=== PATIENT | female | born 1970 ===

== ENCOUNTER 2016-05-07 13:05 | Emergency (ER) | payer MEDICAID ==
[2016-05-07 13:06] VITALS: BMI 29.7
[2016-05-07 13:20] VITALS: BP 126/78; PULSE 80; RESP 16; TEMP 99; O2SAT 100
--- NOTE | 2016-05-07 13:49 | ED PDOC ---
HPI: Female Pain Time Seen by Provider: 05/07/16 13:38 Chief Complaint (Nursing): Female Genitourinary Chief Complaint (Provider): Dysuria History Per: Patient History/Exam Limitations: no limitations Onset/Duration Of Symptoms: Days (x2) Current Symptoms Are (Timing): Still Present Severity: Mild Quality Of Discomfort: Burning Additional Complaint(s): Patient is a 45 year old female presenting to the ED complaining of dysuria x2 days. Dysuria is associated with frequency. Patient is concerned with possible or STD status post unprotected sex in February 2016. Patient has irregular menstrual cycles. Last menstrual period was 02/22/2016. Of note: Patient reports she had a bartholin abscess that she pressed on and now reports mild irritation to the area. PMD: Yovani Garrison Past Medical History Reviewed: Historical Data, Nursing Documentation, Vital Signs Vital Signs: Last Vital Signs Temp 99.0 F 05/07/16 13:15 Pulse 80 05/07/16 13:15 Resp 16 05/07/16 13:15 BP 126/78 05/07/16 13:15 Pulse Ox 100 05/07/16 13:15 - Medical History PMH: Anxiety, Asthma (moderate persistent), Back Problems, Bronchitis, Crohn's Disease, Fractures, Migraine, Pulmonary Embolism, Chronic Pain (Herniated disks and pinched nerves ) Denies: Diabetes, Hepatitis, HIV, HTN, Chronic Kidney Disease, Seizures, Sexually Transmitted Disease Comment Only: COPD (asthma, bronchitis) - Surgical History Surgical History: Cholecystectomy, (1x) - Family History Family History: States: No Known Family Hx - Home Medications Home Medications: Ambulatory Orders Medication Instructions Recorded SUMAtriptan [Imitrex Tab] 25 mg PO DAILY PRN 06/24/14 clonazePAM [Klonopin] 1 mg PO QID 03/30/15 Carisoprodol [Soma] 350 mg PO QID 10/21/15 Dicyclomine [Bentyl] 10 mg PO TID 10/21/15 SulfaSALAzine [Azulfidine] 500 mg PO QID 10/21/15 Pantoprazole [Protonix EC Tab] 40 mg PO DAILY #0 ect 11/01/15 Gabapentin [Neurontin] 100 mg PO TID 11/27/15 HYDROmorphone [Dilaudid] 2 mg PO BID PRN 11/27/15 Albuterol HFA [Ventolin HFA 90 2 puff IH Q6H PRN 12/19/15 mcg/actuation (8 g)] Albuterol/Ipratropium [Duoneb 3 3 ml INH Q6H PRN 12/19/15 mg/0.5 mg (3 ml) UD] Apixaban [Eliquis] 5 mg PO Q12H 12/19/15 Montelukast [Singulair] 10 mg PO HS 12/19/15 Nabumetone [Relafen] 750 mg PO BID 12/19/15 Zolpidem [Ambien] 10 mg PO HS PRN 12/19/15 oxyCODONE [oxyCODONE Immediate 30 mg PO QID 12/19/15 Release Tab] Ciprofloxacin [Cipro] 500 mg PO BID #10 tab 05/07/16 Lidocaine 2% Viscous 0.5 ml TOP Q8H PRN #10 ml 05/07/16 Phenazopyridine HCl [Pyridium] 100 mg PO BID #10 tablet 05/07/16 - Allergies Allergies/Adverse Reactions: Allergies Allergy/AdvReac Type Severity Reaction Status Date / Time amoxicillin Allergy RASH Verified 05/07/16 13:15 amoxicillin trihydrate Allergy RASH Verified 05/07/16 13:15 [From Augmentin] potassium clavulanate Allergy RASH Verified 05/07/16 13:15 [From Augmentin] Review of Systems ROS Statement: Except As Marked, All Systems Reviewed And Found Negative Cardiovascular: Negative for: Chest Pain Genitourinary Female: Positive for: Dysuria, Frequency Physical Exam - Reviewed Nursing Documentation Reviewed: Yes Vital Signs Reviewed: Yes - Physical Exam Appears: Positive for: Well, Non-toxic, No Acute Distress Head Exam: Positive for: ATRAUMATIC, NORMAL INSPECTION, NORMOCEPHALIC Skin: Positive for: Normal Color, Warm, DRY Eye Exam: Positive for: Normal appearance, EOMI, PERRL Neck: Positive for: Normal, Painless ROM Cardiovascular/Chest: Positive for: Regular Rate, Rhythm. Negative for: Gallop , Murmur Respiratory: Positive for: Normal Breath Sounds. Negative for: Accessory Muscle Use, Rhonchi, Respiratory Distress Gastrointestinal/Abdominal: Positive for: Normal Exam, Bowel Sounds, Soft. Negative for: Tenderness Extremity: Positive for: Normal ROM Neurologic/Psych: Positive for: Alert, Oriented - ECG O2 Sat by Pulse Oximetry: 100 (RA) Pulse Ox Interpretation: Normal Medical Decision Making Medical Decision Making: Time: 13:40 Impression: 45 y/o female with dysuria and frequency Plan: UPreg UDip Urine culture and urine gc/chlamydia Pt states she will f/u with her [employer] TECHNICIAN for further testing. Scribe Attestation: Documented by Juan Alberto Gilman acting as a scribe for SURJIT Lees. Provider Attestation: All medical record entries made by the Scribe were at my direction and personally dictated by me. I have reviewed the chart and agree that the record accurately reflects my personal performance of the history, physical exam, medical decision making, and the department course for this patient. I have also personally directed, reviewed, and agree with the discharge instructions and disposition. Disposition - Clinical Impression Clinical Impression: Urinary tract infection - Patient ED Disposition Is Patient to be Admitted: No Counseled Patient/Family Regarding: Diagnosis, Need For Followup, Rx Given - Disposition Referrals: [facility]Outside] [facility] [Outside] Disposition: Routine/Home Disposition Time: 14:12 Condition: STABLE Prescriptions: Ciprofloxacin [Cipro] 500 mg PO BID #10 tab Lidocaine 2% Viscous 0.5 ml TOP Q8H PRN #10 ml PRN Reason: Pain, Severe (8-10) Phenazopyridine HCl [Pyridium] 100 mg PO BID #10 tablet Instructions: Urinary Tract Infection in Women (ED)
== END 2016-05-07 15:09 | disposition home or self-care (01) ==
LOC: H.ER 13:05
DX: N39.0 Urinary tract infection, site not specified (principal); Z79.01 Long term (current) use of anticoagulants; Z86.711 Personal history of pulmonary embolism

== ENCOUNTER 2016-06-20 08:35 | Emergency (ER) | payer MEDICAID ==
[2016-06-20 08:37] VITALS: BMI 29.9
[2016-06-20 08:38] VITALS: BP 125/73; PULSE 104; RESP 18; TEMP 98.1; O2SAT 99
--- NOTE | 2016-06-20 09:00 | ED PDOC ---
HPI: Trauma/Fall - HPI Time Seen by Provider: 06/20/16 08:46 Chief Complaint (Nursing): Trauma Chief Complaint (Provider): headache History Per: Patient History/Exam Limitations: no limitations Onset/Duration Of Symptoms: Days (x 1) Injury Occurred (Timing): Days Ago: (yesterday) Location Of Injury: Left: Head Additional Complaint(s): Barbara Dickerson is a 45 year old female, with an extensive previous medical history including anxiety, migraine, back pain and asthma, who presents to the ED with complaints of a headache associated with dizziness secondary to sustaining a fall yesterday. Patient reports slipping and injuring the left side of her head but denies any loss of consciousness, neck pain,back pain, nausea or vomiting. Patient reports to medicating with Aleve to no relief. PMD: none provided Past Medical History Reviewed: Historical Data, Nursing Documentation, Vital Signs Vital Signs: Last Vital Signs Temp 98.1 F 06/20/16 08:38 Pulse 104 H 06/20/16 08:38 Resp 18 06/20/16 08:38 BP 125/73 06/20/16 08:38 Pulse Ox 99 06/20/16 09:08 - Medical History PMH: Anxiety, Asthma, Back Problems, Bronchitis, Crohn's Disease, Fractures, Migraine, Pulmonary Embolism, Chronic Pain (Herniated disks and pinched nerves ) Denies: Diabetes, Hepatitis, HIV, HTN, Chronic Kidney Disease, Seizures, Sexually Transmitted Disease Comment Only: COPD (asthma, bronchitis) - Surgical History Surgical History: Cholecystectomy, (1x) - Family History Family History: States: Unknown Family Hx - Home Medications Home Medications: Ambulatory Orders Medication Instructions Recorded SUMAtriptan [Imitrex Tab] 25 mg PO DAILY PRN 06/24/14 clonazePAM [Klonopin] 1 mg PO QID 03/30/15 Carisoprodol [Soma] 350 mg PO QID 10/21/15 Dicyclomine [Bentyl] 10 mg PO TID 10/21/15 SulfaSALAzine [Azulfidine] 500 mg PO QID 10/21/15 Pantoprazole [Protonix EC Tab] 40 mg PO DAILY #0 ect 11/01/15 Gabapentin [Neurontin] 100 mg PO TID 11/27/15 HYDROmorphone [Dilaudid] 2 mg PO BID PRN 11/27/15 Albuterol HFA [Ventolin HFA 90 2 puff IH Q6H PRN 12/19/15 mcg/actuation (8 g)] Albuterol/Ipratropium [Duoneb 3 3 ml INH Q6H PRN 12/19/15 mg/0.5 mg (3 ml) UD] Apixaban [Eliquis] 5 mg PO Q12H 12/19/15 Montelukast [Singulair] 10 mg PO HS 12/19/15 Nabumetone [Relafen] 750 mg PO BID 12/19/15 Zolpidem [Ambien] 10 mg PO HS PRN 12/19/15 oxyCODONE [oxyCODONE Immediate 30 mg PO QID 12/19/15 Release Tab] Ciprofloxacin [Cipro] 500 mg PO BID #10 tab 05/07/16 Lidocaine 2% Viscous 0.5 ml TOP Q8H PRN #10 ml 05/07/16 Phenazopyridine HCl [Pyridium] 100 mg PO BID #10 tablet 05/07/16 traMADol [Ultram] 50 mg PO Q8 #10 tab 06/20/16 - Allergies Allergies/Adverse Reactions: Allergies Allergy/AdvReac Type Severity Reaction Status Date / Time amoxicillin Allergy RASH Verified 05/07/16 13:15 amoxicillin trihydrate Allergy RASH Verified 05/07/16 13:15 [From Augmentin] potassium clavulanate Allergy RASH Verified 05/07/16 13:15 [From Augmentin] Review of Systems ROS Statement: Except As Marked, All Systems Reviewed And Found Negative Gastrointestinal: Negative for: Nausea, Vomiting Musculoskeletal: Negative for: Neck Pain, Back Pain Neurological: Positive for: Headache, Dizziness Physical Exam - Reviewed Nursing Documentation Reviewed: Yes Vital Signs Reviewed: Yes - Physical Exam Appears: Positive for: Well, Non-toxic, No Acute Distress Head Exam: Negative for: NORMAL INSPECTION (small abrasion to the left temporal area. no palpable fracture ) Eye Exam: Positive for: Normal appearance, EOMI, PERRL. Negative for: Nystagmus Neck: Positive for: Normal, Painless ROM, Supple Cardiovascular/Chest: Positive for: Regular Rate, Rhythm Respiratory: Positive for: CNT, Normal Breath Sounds Gastrointestinal/Abdominal: Positive for: Normal Exam, Bowel Sounds, Soft Extremity: Positive for: Normal ROM Neurologic/Psych: Positive for: Alert, Oriented. Negative for: Motor/Sensory Deficits - ECG O2 Sat by Pulse Oximetry: 99 (RA) Pulse Ox Interpretation: Normal Medical Decision Making Medical Decision Making: Initial Impression: headache Initial Plan: * urine * CT head w/o contrast * reevaluation Scribe Attestation: Documented by Christin Lazaro, acting as a scribe for Jaret Ambrocio MD. Provider Scribe Attestation: All medical record entries made by the Scribe were at my direction and personally dictated by me. I have reviewed the chart and agree that the record accurately reflects my personal performance of the history, physical exam, medical decision making, and the department course for this patient. I have also personally directed, reviewed, and agree with the discharge instructions and disposition. Disposition - Clinical Impression Clinical Impression: Head injury - Patient ED Disposition Is Patient to be Admitted: No Counseled Patient/Family Regarding: Studies Performed, Diagnosis, Need For Followup, Rx Given - Disposition Referrals: Dariel Schwab MD [Medical Doctor] - Disposition: Routine/Home Disposition Time: 10:00 Condition: FAIR Prescriptions: traMADol [Ultram] 50 mg PO Q8 #10 tab Instructions: Head Injury (ED), Concussion (ED)
--- NOTE | 2016-06-20 10:01 | CT ---
PROCEDURE: CT HEAD WITHOUT CONTRAST. HISTORY: r/o bleed COMPARISON: None available. TECHNIQUE: Axial computed tomography images were obtained through the head/brain without intravenous contrast. Radiation dose: Total exam DLP = 1862 mGy-cm. This CT exam was performed using one or more of the following dose reduction techniques: Automated exposure control, adjustment of the mA and/or kV according to patient size, and/or use of iterative reconstruction technique. FINDINGS: HEMORRHAGE: No intracranial hemorrhage. BRAIN: No mass effect or edema. No atrophy or chronic microvascular ischemic changes. VENTRICLES: Unremarkable. No hydrocephalus. CALVARIUM: Unremarkable. PARANASAL SINUSES: Unremarkable as visualized. No significant inflammatory changes. MASTOID AIR CELLS: Unremarkable as visualized. No inflammatory changes. OTHER FINDINGS: None. IMPRESSION: Normal CT of the Head.
== END 2016-06-20 10:08 | disposition home or self-care (01) ==
LOC: H.ER 08:35
DX: S09.90XA Unspecified injury of head, initial encounter (principal); W19.XXXA Unspecified fall, initial encounter; Y92.89 Other specified places as the place of occurrence of the external cause; F41.9 Anxiety disorder, unspecified; J44.9 Chronic obstructive pulmonary disease, unspecified; J45.909 Unspecified asthma, uncomplicated; K50.90 Crohn's disease, unspecified, without complications; Z79.01 Long term (current) use of anticoagulants; Z86.711 Personal history of pulmonary embolism; Z88.0 Allergy status to penicillin

== ENCOUNTER 2016-07-07 23:31 | Emergency (ER) | payer MEDICAID ==
[2016-07-07 23:31] VITALS: BMI 29.9
[2016-07-07 23:44] VITALS: PULSE 75; RESP 16
[2016-07-08] MEDS ORDERED: Lidocaine 2% Jelly (Uro-Jet) TOP ONE (00:32)
--- NOTE | 2016-07-08 01:13 | ED PDOC ---
HPI: General Adult Time Seen by Provider: 07/07/16 23:52 Chief Complaint (Nursing): Abdominal Pain Chief Complaint (Provider): left labia pain, lower abd pain History Per: Patient History/Exam Limitations: no limitations Onset/Duration Of Symptoms: Days (3) Have you had recent travel within the past 21 days to any of the following countries: [place], [place], [place] or [place]?: No Current Symptoms Are (Timing): Still Present Additional Complaint(s): 45yo female presents to the ED with c/o left labia pain x 3 days with associated lower abdominal pain. Patient states she has had this kind of infection before and last time was told she had UTI. Patient endorses unprotected sex several months ago. Further reports foul smelling discharge and states infection is exacerbating typical Crohn's pain as well. Past Medical History Reviewed: Historical Data, Nursing Documentation, Vital Signs Vital Signs: Last Vital Signs Temp 98 F 07/07/16 23:41 Pulse 75 07/07/16 23:41 Resp 16 07/07/16 23:41 BP 123/67 07/07/16 23:41 Pulse Ox 98 07/08/16 01:22 - Medical History PMH: Anxiety, Asthma, Back Problems, Bronchitis, Crohn's Disease, Fractures, Migraine, Pulmonary Embolism, Chronic Pain (Herniated disks and pinched nerves ) Denies: Diabetes, Hepatitis, HIV, HTN, Chronic Kidney Disease, Seizures, Sexually Transmitted Disease Comment Only: COPD (asthma, bronchitis) - Surgical History Surgical History: Cholecystectomy, (1x) - Family History Family History: States: No Known Family Hx - Home Medications Home Medications: Ambulatory Orders Medication Instructions Recorded SUMAtriptan [Imitrex Tab] 25 mg PO DAILY PRN 06/24/14 clonazePAM [Klonopin] 1 mg PO QID 03/30/15 Carisoprodol [Soma] 350 mg PO QID 10/21/15 Dicyclomine [Bentyl] 10 mg PO TID 10/21/15 SulfaSALAzine [Azulfidine] 500 mg PO QID 10/21/15 Pantoprazole [Protonix EC Tab] 40 mg PO DAILY #0 ect 11/01/15 Gabapentin [Neurontin] 100 mg PO TID 11/27/15 HYDROmorphone [Dilaudid] 2 mg PO BID PRN 11/27/15 Albuterol HFA [Ventolin HFA 90 2 puff IH Q6H PRN 12/19/15 mcg/actuation (8 g)] Albuterol/Ipratropium [Duoneb 3 3 ml INH Q6H PRN 12/19/15 mg/0.5 mg (3 ml) UD] Apixaban [Eliquis] 5 mg PO Q12H 12/19/15 Montelukast [Singulair] 10 mg PO HS 12/19/15 Nabumetone [Relafen] 750 mg PO BID 12/19/15 Zolpidem [Ambien] 10 mg PO HS PRN 12/19/15 oxyCODONE [oxyCODONE Immediate 30 mg PO QID 12/19/15 Release Tab] Ciprofloxacin [Cipro] 500 mg PO BID #10 tab 05/07/16 Lidocaine 2% Viscous 0.5 ml TOP Q8H PRN #10 ml 05/07/16 Phenazopyridine HCl [Pyridium] 100 mg PO BID #10 tablet 05/07/16 traMADol [Ultram] 50 mg PO Q8 #10 tab 06/20/16 Doxycycline Monohydrate 100 mg PO BID 7 Days 07/08/16 Nitrofurantoin Macrocrystals 100 mg PO BID 5 Days 07/08/16 [Macrobid] - Allergies Allergies/Adverse Reactions: Allergies Allergy/AdvReac Type Severity Reaction Status Date / Time amoxicillin Allergy RASH Verified 05/07/16 13:15 amoxicillin trihydrate Allergy RASH Verified 05/07/16 13:15 [From Augmentin] potassium clavulanate Allergy RASH Verified 05/07/16 13:15 [From Augmentin] Review of Systems ROS Statement: Except As Marked, All Systems Reviewed And Found Negative Gastrointestinal: Positive for: Abdominal Pain (lower abd pain ) Genitourinary Female: Positive for: Vaginal Discharge (foul smelling ), Other ( left labia pain ) Physical Exam - Reviewed Nursing Documentation Reviewed: Yes Vital Signs Reviewed: Yes - Physical Exam Appears: Positive for: Well, No Acute Distress Head Exam: Positive for: ATRAUMATIC, NORMAL INSPECTION, NORMOCEPHALIC Skin: Positive for: Normal Color, Warm, Dry Eye Exam: Positive for: Normal appearance, EOMI, PERRL ENT: Positive for: Normal ENT Inspection Neck: Positive for: Normal, Painless ROM, Supple Cardiovascular/Chest: Positive for: Regular Rate, Rhythm. Negative for: Murmur , Tachycardia Respiratory: Positive for: Normal Breath Sounds. Negative for: Wheezing, Respiratory Distress Gastrointestinal/Abdominal: Positive for: Soft, Tenderness (lower abdominal tenderness ) Pelvic Exam: Positive for: Discharge (white foul smelling discharge ), Tender W/ Cervical Motion, Other ((chaperoned by process control tech Tejal Quiñones) vesicles to left labia majora ) Back: Positive for: Normal Inspection. Negative for: L CVA Tenderness, R CVA Tenderness Extremity: Positive for: Normal ROM. Negative for: Deformity, Swelling Neurologic/Psych: Positive for: Alert, Oriented - ECG O2 Sat by Pulse Oximetry: 98 Pulse Ox Interpretation: Normal (RA) Medical Decision Making Medical Decision Makin: Impression: pelvic inflammatory disease, possible herpes Plan: urine preg/dip, UA chlamydia/GC RNA, TMA; HSV 1/2 AB (IGM), W/RFL (S); rapid HIV; rapid plasma reagin Morphine 4mg IM, Lidocaine 2% Gel 1 ea TOP reassess 2AM: Pt. feeling better, return precautions given, told pt. to f/u w/ Dr. Garrison in 2-3 days for repeat UA. Scribe Attestation: Documented by David Richey acting as a scribe for Mike Lambert MD. Provider Scribe Attestation: All medical record entries made by the Scribe were at my direction and personally dictated by me. I have reviewed the chart and agree that the record accurately reflects my personal performance of the history, physical exam, medical decision making, and the department course for this patient. I have also personally directed, reviewed, and agree with the discharge instructions and disposition. Disposition - Clinical Impression Clinical Impression: PID (acute pelvic inflammatory disease), UTI (urinary tract infection) - Disposition Referrals: Yovani Garrison MD [Primary Care Provider] - Disposition: Routine/Home Disposition Time: 02:30 Condition: STABLE Prescriptions: Doxycycline Monohydrate 100 mg PO BID 7 Days Nitrofurantoin Macrocrystals [Macrobid] 100 mg PO BID 5 Days Instructions: Pelvic Inflammatory Disease (ED), Urinary Tract Infection in Women (ED)
[2016-07-08 01:42] LABS: RBC URINE 151 /hpf (0-3); URINE BACTERIA RARE (<OCC); URINE BILIRUBIN NEGATIVE (NEGATIVE); URINE BLOOD SMALL (NEGATIVE); URINE COLOR YELLOW (YELLOW); URINE GLUCOSE (UA) NEG (Normal); URINE KETONE NEGATIVE (NEGATIVE); URINE LEUKOCYTE ESTERASE LARGE Leu/uL (Negative); URINE PROTEIN 30 mg/dL (NEGATIVE); URINE UROBILINOGEN 0.2-1.0 mg/dL (0.2-1.0); WBC URINE 106 /hpf (0-5)
[2016-07-08] MEDS ORDERED: Lidocaine 2% Jelly (Uro-Jet) ONE (02:13)
[2016-07-08 02:44] VITALS: BP 135/80; TEMP 97.9; O2SAT 100
== END 2016-07-08 02:44 | disposition home or self-care (01) ==
LOC: H.ER 23:31
DX: N39.0 Urinary tract infection, site not specified (principal); N73.9 Female pelvic inflammatory disease, unspecified; F41.9 Anxiety disorder, unspecified; G89.29 Other chronic pain; J44.9 Chronic obstructive pulmonary disease, unspecified; J45.909 Unspecified asthma, uncomplicated; K50.90 Crohn's disease, unspecified, without complications; N73.0 Acute parametritis and pelvic cellulitis; Z79.01 Long term (current) use of anticoagulants; Z86.711 Personal history of pulmonary embolism; Z88.0 Allergy status to penicillin

== ENCOUNTER 2016-08-09 10:39 | Emergency (ER) | payer MEDICAID ==
[2016-08-09 10:41] VITALS: BMI 29.2
--- NOTE | 2016-08-09 11:32 | ED PDOC ---
HPI: Abdomen Time Seen by Provider: 08/09/16 10:48 Chief Complaint (Nursing): Abdominal Pain Chief Complaint (Provider): Abbominal Pain History Per: Patient Additional Complaint(s): 45 yo F w PMHx of Anxiety, Crohn's, herniated disks of lumbar region, and Asthma , presents to ED with complaints of abdominal cramping, nuasea and vomiting x 5 days. pt reports that she has been out of her pain medicated so she is withdrawing. pt in and out of sleep during initial encounter. reports she was only able to take Vicodin cushed in [employer] today, "but that is it, I need something else." Pt has a history of Benzo Overdose, accidental in the past. Past Medical History Reviewed: Nursing Documentation, Vital Signs Vital Signs: Last Vital Signs Temp 98.1 F 08/09/16 13:20 Pulse 72 08/09/16 13:20 Resp 16 08/09/16 13:20 BP 108/71 08/09/16 13:20 Pulse Ox 98 08/09/16 14:26 - Medical History PMH: Anxiety, Asthma, Back Problems, Bronchitis, Crohn's Disease, Fractures, Migraine, Pulmonary Embolism, Chronic Pain (Herniated disks and pinched nerves ) Denies: Diabetes, Hepatitis, HIV, HTN, Chronic Kidney Disease, Seizures, Sexually Transmitted Disease Comment Only: COPD (asthma, bronchitis) - Surgical History Surgical History: Cholecystectomy, (1x) - Family History Family History: States: Unknown Family Hx - Social History Current smoker - smoking cessation education provided: No Alcohol: Social Drugs: Denies - Home Medications Home Medications: Ambulatory Orders Medication Instructions Recorded SUMAtriptan [Imitrex Tab] 25 mg PO DAILY PRN 06/24/14 clonazePAM [Klonopin] 1 mg PO QID 03/30/15 Carisoprodol [Soma] 350 mg PO QID 10/21/15 Dicyclomine [Bentyl] 10 mg PO TID 10/21/15 SulfaSALAzine [Azulfidine] 500 mg PO QID 10/21/15 Pantoprazole [Protonix EC Tab] 40 mg PO DAILY #0 ect 11/01/15 Gabapentin [Neurontin] 100 mg PO TID 11/27/15 HYDROmorphone [Dilaudid] 2 mg PO BID PRN 11/27/15 Albuterol HFA [Ventolin HFA 90 2 puff IH Q6H PRN 12/19/15 mcg/actuation (8 g)] Albuterol/Ipratropium [Duoneb 3 3 ml INH Q6H PRN 12/19/15 mg/0.5 mg (3 ml) UD] Apixaban [Eliquis] 5 mg PO Q12H 12/19/15 Montelukast [Singulair] 10 mg PO HS 12/19/15 Nabumetone [Relafen] 750 mg PO BID 12/19/15 Zolpidem [Ambien] 10 mg PO HS PRN 12/19/15 oxyCODONE [oxyCODONE Immediate 30 mg PO QID 12/19/15 Release Tab] Ciprofloxacin [Cipro] 500 mg PO BID #10 tab 05/07/16 Lidocaine 2% Viscous 0.5 ml TOP Q8H PRN #10 ml 05/07/16 Phenazopyridine HCl [Pyridium] 100 mg PO BID #10 tablet 05/07/16 traMADol [Ultram] 50 mg PO Q8 #10 tab 06/20/16 Doxycycline Monohydrate 100 mg PO BID 7 Days 07/08/16 Nitrofurantoin Macrocrystals 100 mg PO BID 5 Days 07/08/16 [Macrobid] valACYclovir [Valtrex] 1 gm PO BID #20 tab 07/13/16 Ondansetron ODT [Zofran ODT] 4 mg PO Q6 PRN #10 odt 08/09/16 - Allergies Allergies/Adverse Reactions: Allergies Allergy/AdvReac Type Severity Reaction Status Date / Time amoxicillin Allergy RASH Verified 05/07/16 13:15 amoxicillin trihydrate Allergy RASH Verified 05/07/16 13:15 [From Augmentin] potassium clavulanate Allergy RASH Verified 05/07/16 13:15 [From Augmentin] Review of Systems ROS Statement: Except As Marked, All Systems Reviewed And Found Negative Gastrointestinal: Positive for: Nausea, Vomiting, Abdominal Pain Physical Exam - Reviewed Nursing Documentation Reviewed: Yes Vital Signs Reviewed: Yes - Physical Exam Appears: Positive for: Well, Non-toxic, No Acute Distress Head Exam: Positive for: ATRAUMATIC, NORMAL INSPECTION, NORMOCEPHALIC Skin: Positive for: Normal Color, Warm, DRY Eye Exam: Positive for: EOMI, Normal appearance, PERRL ENT: Positive for: Normal ENT Inspection Neck: Positive for: Normal, Painless ROM Cardiovascular/Chest: Positive for: Regular Rate, Rhythm Respiratory: Positive for: CNT, Normal Breath Sounds Gastrointestinal/Abdominal: Positive for: Normal Exam, Bowel Sounds, Soft. Negative for: Tenderness Back: Positive for: Normal Inspection Extremity: Positive for: Normal ROM Neurologic/Psych: Positive for: Alert, Oriented - Laboratory Results Result Diagrams: 08/09/16 11:55 08/09/16 11:55 - ECG O2 Sat by Pulse Oximetry: 98 Medical Decision Making Medical Decision Making: IV access established and treatment initiated with IVF, Ativan and Zofran Pt asking for Morphine and underwriter denied. Pt educated on medication abuse, as well as withdrawal symptoms. Pt's mother at bedside and is also trying to re- enforce Pt weaning from her narcotics. No episodes of vomiting while in ED. labs resulted and reviewed with pt who demonstrated full understanding. UDS (+) Benzos and Opiates Pt asking to go home on re-eval if no narcotics will be provided. Upon discharge, Pt upset and yelling that she did not come to hospital for drug withdrawls. "i have not taken my medication in 5 days, I have vomiting and nausea, not withdrawl." Again, underwriter educated Pt on symptoms of withdrawl. Pt requesting to have dx removed from chart. Pt states she needs to show her job papers she was here and does not want dx listed on her chart. Pt was also concerned about her job being aware of reasons of her visit today. Registered Nurse Hh Case Manager offered work note and educated patient about [place] Laws. Patient states she will not come back again. Pt ambulates out of ED with friend with all belongings , screaming "i was hear for leg pain and they didn't give me anything." Disposition - Clinical Impression Clinical Impression: Vomiting, Symptom of drug withdrawal - Patient ED Disposition Is Patient to be Admitted: No - Disposition Disposition: Routine/Home Disposition Time: 14:30 Condition: STABLE Prescriptions: Ondansetron ODT [Zofran ODT] 4 mg PO Q6 PRN #10 odt PRN Reason: Nausea/Vomiting Instructions: Opioid Withdrawal (ED)
[2016-08-09] MEDS ORDERED: Sodium Chloride 0.9% 1,000 ML IV STA (11:33)
[2016-08-09 11:59] LABS: BASO % 0.3 % (0.0-2.0); EOS % 0.5 % (0.0-4.0); HEMOGLOBIN 12.4 g/dL (12.0-16.0); LYMPH # 2.2 K/uL (1.0-4.3); LYMPH % 29.9 % (20.0-40.0); MEAN CELL VOLUME 90.9 fl (81.0-99.0); MONO # 0.5 K/uL (0.0-0.8); MONO % 6.7 % (0.0-10.0); NEUT # 4.7 K/uL (1.8-7.0); NEUT % 62.6 % (50.0-75.0); NRBC % 0.1 % (0.0-0.0); RBC 4.14 Mil/uL (3.80-5.20); RED CELL DISTRIBUTION WIDTH 15.1 % (11.5-14.5); WHITE BLOOD COUNT 7.5 K/uL (4.8-10.8)
[2016-08-09 12:10] LABS: ACETAMINOPHEN < 10.0 ug/ml (10.0-30.0); SALICYLATE < 1.0 mg/dl
[2016-08-09 12:20] LABS: BARBITURATES, UR NEGATIVE (NEGATIVE); BENZODIAZEPINES, UR POSITIVE (NEGATIVE); OPIATES, UR POSITIVE (NEGATIVE); PHENCYCLIDINE, UR NEGATIVE (NEGATIVE)
[2016-08-09 13:21] VITALS: BP 108/71; PULSE 72; RESP 16; TEMP 98.1
[2016-08-09 13:23] LABS: ALB/GLOB RATIO 1.2 (1.0-2.1); ALBUMIN 3.9 g/dL (3.5-5.0); ALT/SGPT 27 U/L (9-52); AST/SGOT 17 U/L (14-36); BLOOD UREA NITROGEN 9 mg/dl (7-17); CALCIUM 8.8 mg/dL (8.4-10.2); GFR AFRICAN-AMERICAN > 60; GFR NON-AFRICAN AMERICAN > 60; LIPASE 34 U/L (23-300)
--- NOTE | 2016-08-09 14:17 | RAD ---
PROCEDURE: CHEST RADIOGRAPH, 1 VIEW HISTORY: med screening COMPARISON: Comparison chest 12/19/2015 FINDINGS: LUNGS: Clear. PLEURA: No pneumothorax or pleural fluid seen. CARDIOVASCULAR: Normal. OSSEOUS STRUCTURES: No significant abnormalities. VISUALIZED UPPER ABDOMEN: Normal. OTHER FINDINGS: None. IMPRESSION: No active disease.
[2016-08-09 14:24] VITALS: O2SAT 98
[2016-08-09 15:01] LABS: SQUAMOUS EPITHIAL 1 /hpf (0-5); URINE BILIRUBIN NEGATIVE (NEGATIVE); URINE BLOOD NEGATIVE (NEGATIVE); URINE CLARITY CLEAR (Clear); URINE COLOR STRAW (YELLOW); URINE GLUCOSE (UA) NEG (Normal); URINE LEUKOCYTE ESTERASE NEG Leu/uL (Negative); URINE NITRATE NEGATIVE (NEGATIVE); URINE PROTEIN NEGATIVE (NEGATIVE); URINE UROBILINOGEN 0.2-1.0 mg/dL (0.2-1.0)
--- NOTE | 2016-08-10 06:47 | CARD ---
APPROVED REPORT EKG Measurement Heart [id number] <Conclusion> Normal sinus rhythm Normal ECG
== END 2016-08-09 13:41 | disposition home or self-care (01) ==
LOC: H.ER 10:39
DX: F11.10 Opioid abuse, uncomplicated (principal); K50.90 Crohn's disease, unspecified, without complications; Z79.01 Long term (current) use of anticoagulants; Z86.711 Personal history of pulmonary embolism; Z88.0 Allergy status to penicillin

== ENCOUNTER 2016-09-08 13:14 | Day surgery (SDC) | payer MEDICAID ==
[2016-09-08 13:50] VITALS: O2SAT 98
[2016-09-08 14:05] VITALS: BMI 30.4
--- NOTE | 2016-09-08 14:06 | CP.SDSHP ---
Same Day Surgery H & P - History Proposed Procedure: left foot removal of hardware Pre-Op Diagnosis: painful hardware 5th metatarsal - Previous Medical/Surgical History Pain: 9. - Allergies Allergies: Allergies amoxicillin Allergy (Verified 05/07/16 13:15) RASH amoxicillin trihydrate [From Augmentin] Allergy (Verified 05/07/16 13:15) RASH potassium clavulanate [From Augmentin] Allergy (Verified 05/07/16 13:15) RASH - Physical Exam Vital Signs: Vital Signs 09/08/16 09/08/16 13:49 13:53 Temperature 98.5 F Pulse Rate 80 80 Respiratory 20 Rate Blood Pressure 104/66 O2 Sat by Pulse 98 Oximetry Mental Status: Alert & Oriented x3 - {Optional Preform as Required} Integument: WNL - Impression Impression: Pt was seen and examined in SDS. Pt NPO status was confirmed. All Pre-op testing and clearance was in the chart. Pt has exhausted all conservative treatment at this time and is opting for surgical intervention. Pt was explained procedure and post-operative course. All pt's questions were answered to satisfaction. No guarantees were made. Pt understands all risks, benefits and complications of procedure. Pt will follow-up with - Date & Time Date: 09/08/16 Time: 14:07 Short Stay Discharge - Short Stay Discharge Admitting Diagnosis/Reason for Visit: T84.498D Referrals: Yovani Garrison MD [Primary Care Provider] - Follow-up: Followup in clinic with Dr. Mcclain in 1 week Additional Instructions (Diet, Activity): Patient is to keep dressing clean, dry, and intact. Patient may weight bear as tolerated in surgical shoe. Progress Note/Discharge Note with Instructions: - Patient evaluated bedside in recovery s/p surgical procedure. - After surgical procedure patient in NAD - (+) Void, (+) Appetite - Capillary refill time <3s and NVSI intact. - Patient denies complaints at this time - Post operative instructions and plan of care explained to patient at length. - Pt. acknowledges understanding. - Patient stable for DC per podiatric surgery
[2016-09-08] MEDS ORDERED: Bupivacaine 0.5% 50 ML IJ ONE ×4 (14:12→16:33)
[2016-09-08] MEDS ORDERED: Clindamycin 600 MG in Sodium Chloride 0.9% 100 ML IVPB ONE (14:12)
[2016-09-08] MEDS ORDERED: Lidocaine 1% Inj (20ml) IJ ONE ×4 (14:12→16:33)
--- NOTE | 2016-09-08 14:20 | CP.PCM.PN ---
Subjective - Date & Time of Evaluation Date of Evaluation: 09/08/16 Time of Evaluation: 13:45 - Subjective Subjective: 46 year old female with PMH of asthma, hyperlipid, IBD, Chrohns, anxiety, and 4 PEs left lung was seen in DSD for per-operative evaluation for left foot removal of hardware by Dr. Mcclain today. Patient has been having a lot of pain to the lateral aspect of 5th metatarsal where hardware is located. Patient states the pain is constant, rating the pain 9/10. Worse with walking. Patient has exhausted all conservative treatment and now opts for surgical intervention. NPO status confirmed. Patient is NAD and AAOx3, denies n/v/f/c/sob /cp. PSH: gallbladder removal, C section, 12 back cysts removed, fracture of L foot 5th digit in 2016 Allergies: augmentin (rash and nausea) SH: denies smoking, drinking or ellicited drug use Objective - Vital Signs/Intake and Output Vital Signs (last 24 hours): Temp Pulse Resp BP Pulse Ox 98.5 F 80 20 104/66 98 09/08/16 13:49 09/08/16 13:53 09/08/16 13:49 09/08/16 13:49 09/08/16 13:49 - Medications Medications: Current Medications Bupivacaine HCl (Marcaine 0.5% 50 Ml) 50 ml IJ ONCE ONE Stop: 09/08/16 14:13 Clindamycin Phosphate 600 mg/ (Sodium Chloride) 54 mls @ 54 mls/hr IVPB ONCE ONE Stop: 09/08/16 15:11 Lidocaine HCl (Lidocaine 1% (20ml)) 20 ml IJ ONCE ONE Stop: 09/08/16 14:13 - Constitutional Appears: Well, Non-toxic, No Acute Distress - Extremities Exam Additional comments: Vasc: DP and PT 2/4 bilaterally, TAXATION AGENT < 3 seconds, temperature gradient WNL, no edema noted, digital hair presents bilaterally Ortho: MM is 4/5 in all four compartments bilaterally, severe pain upon palpation of the lateral aspect of 5th metatarsal when hardware is located Neuro: gross sensation intact bilaterally Derm:completely healed hypertropic scar noted along the dorsum of 5th metatarsal secondary to previous surgery. Skin is well hydrated - Neurological Exam Neurological Exam: Alert, Awake, Oriented x3 - Psychiatric Exam Psychiatric exam: Normal Affect, Normal Mood Assessment and Plan - Assessment and Plan (Free Text) Assessment: 46 year old female presents to [facility] for left hard removal of foot due to painful hardware Plan: Pt was seen and examined in [facility] Pt NPO status was confirmed All Pre-op testing and clearance was in the chart Pt has exhausted all conservative treatment at this time and is opting for surgical intervention Pt was explained procedure and post-operative course All pt's questions were answered to satisfaction No guarantees were made Pt understands all risks, benefits and complications of procedure Pt will follow-up with Dr. Mcclain
[2016-09-08] MEDS ORDERED: Succinylcholine 200 mg/10 ml Inj IV ONE (14:51)
[2016-09-08] MEDS ORDERED: Propofol 10 mg/ml Inj (20 ML) ONE (14:51)
[2016-09-08] MEDS ORDERED: Lidocaine 1% Inj (20ml) ONE (14:58)
[2016-09-08] MEDS ORDERED: Bupivacaine 0.5% Inj(30mL) ONE (14:58)
[2016-09-08] MEDS ORDERED: Lactated Ringer's 1,000 ML IV ONE (15:50)
[2016-09-08] MEDS ORDERED: Dexamethasone 4 mg/1 ml ONE ×2 (16:12→16:14)
[2016-09-08] MEDS ORDERED: Naloxone 0.4 mg/ml Inj (Adult) ONE (16:23)
[2016-09-08] MEDS ORDERED: HYDROmorphone 0.5 mg/0.5 ml ISec ONE (16:53)
--- NOTE | 2016-09-08 16:54 | PCM.SURG1 ---
Surgeon's Initial Post Op Note - Surgeon's Notes Surgeon: Dr. Riley Mcclain, DPM Sock Liner: Dr. Kaden Lang DPM, PGY1, Dr. Kenia Wang DPM, PGY-1 Type of Anesthesia: General Endo, Local Anesthesia Administered By: Dr. Alexandre Pre-Operative Diagnosis: Left 5th metatarsal painful hardware Operative Findings: see dictations. materials: 3-0 vicryl, 4-0 vicyrl, 4-0 prolene. 4.5 cc of 1:1 0.5% marcaine plain and 1% lidocaine plain Post-Operative Diagnosis: same Operation Performed: hardware removal of left 5th metatarsal Specimen/Specimens Removed: none Estimated Blood Loss: EBL {In ML}: 0 Blood Products Given: N/A Drains Used: No Drains Post-Op Condition: Good Date of Surgery/Procedure: 09/08/16 Time of Surgery/Procedure: 03:00
[2016-09-08] MEDS: HYDROmorphone 0.5 mg/0.5 ml ISec IVP PRN ×6 (16:55→17:40)
[2016-09-08] MEDS ORDERED: Oxycodone/Acetaminophen 5/325 mg Tab PO PRN ×2 (16:58)
[2016-09-08 18:33] VITALS: RESP 18
[2016-09-08 19:15] VITALS: BP 114/58; PULSE 63; TEMP 98
[2016-09-08] MEDS ORDERED: Albuterol-Ipratrop 3 mg / 0.5 (3 ml) UD INH PRN (19:17)
[2016-09-08] MEDS ORDERED: Albuterol HFA 90 mcg/actuation (8 g) IH PRN (19:17)
[2016-09-08] MEDS ORDERED: Morphine 30 mg SR Tab PO PRN (19:17)
[2016-09-08] MEDS ORDERED: Oxycodone/Acetaminophen 5/325 mg Tab PO ONE (19:20)
[2016-09-08] MEDS ORDERED: oxyCODONE 10 mg Immediate Release Tab PO SCH (22:00)
--- NOTE | 2016-09-09 01:51 | OP ---
PROCEDURE DATE: 09/08/2016 Dictating for Riley Sutton DPM. PREOPERATIVE DIAGNOSIS: Painful hardware and left foot fifth metatarsal. POSTOPERATIVE DIAGNOSIS: Painful hardware of left foot fifth metatarsal. PROCEDURE: Left foot removal of painful hardware. SURGEON: Riley Sutton DPM POCKET STITCHER: Kaden Lang, PGY-1 TYPE OF ANESTHESIA: IV sedation and 4.5 cc of a 1:1 mixture of 1% lidocaine plain and 0.5% Marcaine plain. ANESTHESIA ADMINISTERED BY: Dr. Alexandre. INDICATIONS: The patient is a 46-year-old female with the above diagnosis. The patient has exhausted all conservative treatment at this time and now requests surgical intervention. The patient signed the consent after careful explanation of risks, benefits, complications, and alternatives for surgical procedure. No guarantees were given nor implied. NPO status was confirmed prior to taking the patient into the OR. PREPARATION: The patient was brought into the operating room and placed on the operating room table in a supine position. Time out was performed for identification of the correct patient and procedure. After induction of IV sedation, a local block was performed consisting of 4.5 mL of 1:1 mixture of 1% lidocaine plain and 0.5% Marcaine plain. The left foot was then prepped and draped in normal sterile manner. Attention was then directed to the left fifth metatarsal where two painful Synthes 2.0 screws were present. An approximately 4.0 cm elliptical incision was made with a #15 blade. The incision was deepened to the subcutaneous tissues using sharp and blunt dissection all the way down to bone. Care was taken to identify and retract all vital neurovascular structures. The two Synthes 2.0 screws were then visualized through the incision using a Faywood elevator and gauge. The soft tissue was dissected from the hardware and the screws were removed from the fifth metatarsal using a Synthes screwdriver. The wound was then flushed with copious amounts of sterile normal saline solution. The deep fascia was then reapproximated and coapted utilizing #3-0 Vicryl with simple sutures followed by reapproximation and coaptation of the subcutaneous tissue layer utilizing #3-0 Vicryl in a running fashion. The skin overlying the surgical incision site was then reapproximated and coapted utilizing #4-0 nylon with simple sutures. The incision sites were then dressed with Xeroform, DSD, and an Jerod bandage. The attending was present for the entirety of the case. POSTOPERATIVE CONDITION: The patient tolerated the anesthesia and procedure well and was escorted to the recovery room with vital signs stable and neurovascular status intact in the left foot. The patient will be full weightbearing in a surgical shoe and follow up with Dr. Sutton. Kaden Lang DPM SEFERINO
[2016-09-09] MEDS ORDERED: Pantoprazole 40 mg EC Tab PO SCH (09:00)
--- NOTE | 2016-09-09 12:12 | RAD ---
PROCEDURE: Left Foot Radiographs. HISTORY: s/p left foot surgery COMPARISON: None available. FINDINGS: Images are obtained through a bandage which limits visibility of osseous detail. BONES: No acute displaced fracture. Small calcaneal enthesophyte. Mild irregularity about the distal 5th metatarsal and adjacent approximately 2 mm calcification/ossification. Correlate with surgical history. JOINTS: No dislocation. SOFT TISSUES: Mild soft tissue swelling. No evidence of radiopaque foreign body. OTHER FINDINGS: None. IMPRESSION: Mild soft tissue swelling. Small calcaneal enthesophyte. Mild irregularity about the distal 5th metatarsal and adjacent approximately 2 mm calcification/ossification. Correlate with surgical history.
== END 2016-09-08 19:47 | disposition home or self-care (01) ==
LOC: H.OPSURG 13:14
PROVIDERS: ATTEND Podiatrist Foot & Ankle Surgery
DX: T84.84XA Pain due to internal orthopedic prosthetic devices, implants and grafts, initial encounter (principal); Y83.1 Surgical operation with implant of artificial internal device as the cause of abnormal reaction of the patient, or of later complication, without mention of misadventure at the time of the procedure; J45.909 Unspecified asthma, uncomplicated; E78.5 Hyperlipidemia, unspecified; K58.9 Irritable bowel syndrome, unspecified; K50.90 Crohn's disease, unspecified, without complications; F41.9 Anxiety disorder, unspecified; Z90.49 Acquired absence of other specified parts of digestive tract; Z87.81 Personal history of (healed) traumatic fracture; Z88.0 Allergy status to penicillin; Z88.8 Allergy status to other drugs, medicaments and biological substances

== ENCOUNTER 2017-02-08 18:31 | Inpatient (IN) | payer MEDICAID ==
[2017-02-08 18:32] VITALS: BMI 30.4
[2017-02-08] MEDS ORDERED: Albuterol-Ipratrop 3 mg / 0.5 (3 ml) UD INH STA (18:53)
[2017-02-08] MEDS ORDERED: Albuterol-Ipratrop 3 mg / 0.5 (3 ml) UD ONE (18:53)
[2017-02-08 19:41] LABS: BASO % 0.4 % (0.0-2.0); EOS # 0.1 K/uL (0.0-0.7); HEMOGLOBIN 8.7 g/dL (12.0-16.0); LYMPH # 2.1 K/uL (1.0-4.3); LYMPH % 32.3 % (20.0-40.0); MEAN CELL VOLUME 83.6 fl (81.0-99.0); MEAN CORPUSCULAR HEMOGLOBIN 26.1 pg (27.0-31.0); MEAN CORPUSCULAR HGB CONC 31.2 g/dL (33.0-37.0); MEAN PLATELET VOLUME 9.7 fl (7.2-11.7); MONO # 0.6 K/uL (0.0-0.8); MONO % 9.3 % (0.0-10.0); NEUT # 3.6 K/uL (1.8-7.0); NRBC % 0.1 % (0.0-0.0); RBC 3.32 Mil/uL (3.80-5.20); RED CELL DISTRIBUTION WIDTH 18.3 % (11.5-14.5); WHITE BLOOD COUNT 6.4 K/uL (4.8-10.8)
[2017-02-08 19:52] LABS: ALB/GLOB RATIO 1.1 (1.0-2.1); ALBUMIN 3.8 g/dL (3.5-5.0); ALT/SGPT 34 U/L (9-52); AST/SGOT 21 U/L (14-36); BLOOD UREA NITROGEN 16 mg/dl (7-17); CALCIUM 8.9 mg/dL (8.4-10.2); GFR AFRICAN-AMERICAN > 60; GFR NON-AFRICAN AMERICAN > 60
[2017-02-08 20:01] LABS: B-TYPE NATRIURETIC PEPTIDE 747 pg/ml (0-450)
--- NOTE | 2017-02-08 20:08 | ED PDOC ---
HPI: SOB/CHF/COPD Time Seen by Provider: 02/08/17 18:46 Chief Complaint (Nursing): Shortness Of Breath Chief Complaint (Provider): Shortness Of Breath History Per: Patient History/Exam Limitations: no limitations Onset/Duration Of Symptoms: Days (x 3) Current Symptoms Are (Timing): Still Present Additional Complaint(s): 46 y/o female with a past medical history of asthma presents to the ER complaining of chest tightness and shortness of breath over the past 3 days, which is acutely worsened today. Also reports having a nonproductive cough. No rhinorrhea or fever. Patient has been using inhaler and nebulized ipratropium treatments at home with no relief. She has a history of admissions for asthma exacerbation (last 1.5 years ago), but no intubations. PMD: Dr. Yovani Garrison - Risk Factors PE Risk Factors: Pos: Previous PE Past Medical History Reviewed: Historical Data, Nursing Documentation, Vital Signs Vital Signs: Last Vital Signs Temp 98.1 F 02/08/17 23:02 Pulse 109 H 02/08/17 23:02 Resp 17 02/08/17 23:02 BP 122/65 02/08/17 23:02 Pulse Ox 97 02/08/17 23:02 - Medical History PMH: Anxiety, Asthma, Back Problems, Bronchitis, Crohn's Disease, Fractures, Hypercholesterolemia, Migraine, Osteoporosis, Pulmonary Embolism, Chronic Pain ( Herniated disks and pinched nerves ) Denies: Diabetes, Hepatitis, HIV, HTN, Chronic Kidney Disease, Seizures, Sexually Transmitted Disease Comment Only: COPD (asthma, bronchitis) - Surgical History Surgical History: Cholecystectomy (2009), (1x) - Family History Family History: States: Unknown Family Hx - Home Medications Home Medications: Ambulatory Orders Medication Instructions Recorded SUMAtriptan [Imitrex Tab] 25 mg PO DAILY PRN 06/24/14 clonazePAM [Klonopin] 1 mg PO QID 03/30/15 Dicyclomine [Bentyl] 10 mg PO TID 10/21/15 SulfaSALAzine [Azulfidine] 500 mg PO QID 10/21/15 Pantoprazole [Protonix EC Tab] 40 mg PO DAILY #0 ect 11/01/15 Gabapentin [Neurontin] 300 mg PO TID 11/27/15 Albuterol HFA [Ventolin HFA 90 2 puff IH Q6H PRN 12/19/15 mcg/actuation (8 g)] Albuterol/Ipratropium [Duoneb 3 3 ml INH Q6H PRN 12/19/15 mg/0.5 mg (3 ml) UD] Apixaban [Eliquis] 5 mg PO Q12H 12/19/15 Ondansetron ODT [Zofran ODT] 4 mg PO Q6 PRN #10 odt 08/09/16 Atorvastatin [Lipitor] 20 mg PO DAILY 09/08/16 Carisoprodol [Soma] 350 mg PO QID 09/08/16 Cholecalciferol (Vitamin D3) 2,000 units PO DAILY 09/08/16 [Vitamin D3] Cyanocobalamin [Vitamin B12 1000 1,000 mcg IM QWK 09/08/16 mcg/ml Inj] Morphine [MS Contin] 60 mg PO BID PRN 09/08/16 Hydrocodone/Acetaminophen [Bondurant 1 tab PO QID PRN 02/08/17 10-325 Tablet] Oxycodone HCl [Roxicodone] 30 mg PO QID PRN 02/08/17 - Allergies Allergies/Adverse Reactions: Allergies Allergy/AdvReac Type Severity Reaction Status Date / Time amoxicillin Allergy RASH Verified 05/07/16 13:15 amoxicillin trihydrate Allergy RASH Verified 05/07/16 13:15 [From Augmentin] potassium clavulanate Allergy RASH Verified 05/07/16 13:15 [From Augmentin] Review of Systems ROS Statement: Except As Marked, All Systems Reviewed And Found Negative Constitutional: Negative for: Fever ENT: Negative for: Nose Congestion Cardiovascular: Positive for: Chest Pain (tightness) Respiratory: Positive for: Cough, Shortness of Breath. Negative for: Sputum Physical Exam - Reviewed Nursing Documentation Reviewed: Yes Vital Signs Reviewed: Yes - Physical Exam Appears: Positive for: In Acute Distress (respiratory) Head Exam: Positive for: ATRAUMATIC, NORMOCEPHALIC Skin: Positive for: Warm, Dry Eye Exam: Positive for: EOMI, PERRL ENT: Positive for: Pharynx Is (clear with dry mucus membranes) Neck: Positive for: Painless ROM, Supple Cardiovascular/Chest: Positive for: Regular Rate, Rhythm, Chest Non Tender. Negative for: Murmur Respiratory: Positive for: Decreased Breath Sounds (bilateral bases), Accessory Muscle Use, Respiratory Distress (poor air movement) Gastrointestinal/Abdominal: Positive for: Soft. Negative for: Tenderness Back: Positive for: Normal Inspection. Negative for: Decreased ROM Extremity: Positive for: Normal ROM. Negative for: Calf Tenderness, Deformity Lymphatic: Negative for: Adenopathy Neurologic/Psych: Positive for: Alert. Negative for: Motor/Sensory Deficits - Laboratory Results Result Diagrams: 02/08/17 19:27 02/08/17 19:27 - ECG O2 Sat by Pulse Oximetry: 88 (NC) Pulse Ox Interpretation: Abnormal - Radiology X-Ray: Interpreted by [place] X-Ray Interpretation: No Acute Disease - Progress Condition: Unchanged - Critical Care Total Time (In Min): 30 Documented Critical Care: Time excludes all time spent performint seperately billable procedures Medical Decision Making Medical Decision Making: Initial Impression: Asthma exacerbation Differential includes but is not limited to: pneumonia, viral illness, influenza Time: 18:51 Initial Plan: * EKG * Labs * Urine dipstick * Urine * Chest X-Ray * Influenza A B * Blood culture * Duoneb 3ml INH * Solu Medrol 125 mg IVP * Peak Flow pre/post treatment * Pending reevaluation Labs reviewed, flu negative. Pro-BNP elevated. Time: 20:13 Patient having continued chest pain. Ordered CT Angio Chest. Patient given Percocet and Ultram for pain. ____ Patient Name: DIANDRA TRAMMELL (Age): 1970 46 Gender: F Date of Exam: 02/08/2017 Referring Physician: Soledad Guthrie # of Images: [phone] Ordered As: CT ANGIO CHEST PE PROTOCOL Page 1 of 2 EXAM: CT Angiography Chest With Intravenous Contrast CLINICAL HISTORY: 46 years old, female; Pain; Chest pressure; Additional info: Chest pain TECHNIQUE: Axial computed tomographic angiography images of the chest with intravenous contrast using pulmonary embolism protocol. All CT scans at this facility use one or more dose reduction techniques, viz.: automated exposure control; ma/kV adjustment per patient size (including targeted exams where dose is matched to indication; i.e. head); or iterative reconstruction technique. MIP reconstructed images were created and reviewed. Coronal and sagittal reformatted images were created and reviewed. CONTRAST: 99 mL of [id number] administered intravenously. COMPARISON: No relevant prior studies available. FINDINGS: Limitations: Suboptimal timing of bolus. Pulmonary arteries: No definite pulmonary embolism. Aorta: No aneurysm. No dissection. Lungs: Mild underinflation. Mild atelectasis/scarring. No consolidation. Mild mosaic pattern of lung parenchyma, nonspecific but likely air trapping. Pleural space: No significant effusion. No pneumothorax. Heart: Mild cardiomegaly. No significant pericardial effusion. Bones/joints: No acute fracture. Soft tissues: Unremarkable. Lymph nodes: No pathologically enlarged lymph nodes. Gallbladder and bile ducts: Cholecystectomy. IMPRESSION: 1. No definite CT evidence of pulmonary embolism. 2. Incidental/non-acute findings are described above. Thank you for allowing us to participate in the care of your patient. Dictated and Authenticated by: Nicholas Briceno MD 02/08/2017 10:09 PM Eastern Time ([place] & [place]) Time: 22:28 * Morphine 2 mg IV * Albuterol 2.5 mg INH * Peak Flow pre/post treatment * Magnesium sulfate 2 gm in 50ml IVPB * Repeat EKG Time: 22:31 Patient continues to have chest pain despite pain meds, solu-medrol, and nebulizers given. Discussed with ALEX Liriano, patient will be hospitalized for further management. Scribe Attestation: Documented by Miriam Gibbs, acting as a scribe for Soledad Guthrie MD Provider Scribe Attestation: All medical record entries made by the Scribe were at my direction and personally dictated by me. I have reviewed the chart and agree that the record accurately reflects my personal performance of the history, physical exam, medical decision making, and the department course for this patient. I have also personally directed, reviewed, and agree with the discharge instructions and disposition. Disposition - Clinical Impression Clinical Impression: Chest pain, Status asthmaticus - Patient ED Disposition Is Patient to be Admitted: Yes Discussed With : Yovani Garrison Doctor Will See Patient In The: Hospital Counseled Patient/Family Regarding: Studies Performed, Diagnosis - Disposition Disposition: Transfer of Care (admitted) Disposition Time: 22:30 Condition: GUARDED - Pt Status Changed To: Hospital Disposition Of: Observation - POA Present On Arrival: None
[2017-02-08] MEDS ORDERED: Sodium Chloride 0.9% 50 ML IV ONE (20:17)
[2017-02-08] MEDS ORDERED: Iodixanol 320 MG/ML 100 ML BOTTLE IV ONE (20:17)
[2017-02-08] MEDS ORDERED: Oxycodone/Acetaminophen 5/325 mg Tab PO STA (20:21)
[2017-02-08] MEDS ORDERED: Oxycodone/Acetaminophen 5/325 mg Tab ONE (20:23)
--- NOTE | 2017-02-08 22:10 | CT ---
EXAM: CT Angiography Chest With Intravenous Contrast CLINICAL HISTORY: 46 years old, female; Pain; Chest pressure; Additional info: Chest pain TECHNIQUE: Axial computed tomographic angiography images of the chest with intravenous contrast using pulmonary embolism protocol. All CT scans at this facility use one or more dose reduction techniques, viz.: automated exposure control; ma/kV adjustment per patient size (including targeted exams where dose is matched to indication; i.e. head); or iterative reconstruction technique. MIP reconstructed images were created and reviewed. Coronal and sagittal reformatted images were created and reviewed. CONTRAST: 99 mL of [id number] administered intravenously. COMPARISON: No relevant prior studies available. FINDINGS: Limitations: Suboptimal timing of bolus. Pulmonary arteries: No definite pulmonary embolism. Aorta: No aneurysm. No dissection. Lungs: Mild underinflation. Mild atelectasis/scarring. No consolidation. Mild mosaic pattern of lung parenchyma, nonspecific but likely air trapping. Pleural space: No significant effusion. No pneumothorax. Heart: Mild cardiomegaly. No significant pericardial effusion. Bones/joints: No acute fracture. Soft tissues: Unremarkable. Lymph nodes: No pathologically enlarged lymph nodes. Gallbladder and bile ducts: Cholecystectomy. IMPRESSION: 1. No definite CT evidence of pulmonary embolism. 2. Incidental/non-acute findings are described above.
[2017-02-08] MEDS ORDERED: Albuterol 0.083% Inhal Sol (2.5 mg/3 mL) UD IH STA (22:27)
[2017-02-08] MEDS ORDERED: Magnesium Sulfate 2 gm/50 ml 2 GM/50 ML BAG IVPB ONE (22:30)
[2017-02-08] MEDS ORDERED: Magnesium Sulfate 2 gm/50 ml 2 GM/50 ML BAG ONE (22:43)
[2017-02-09] MEDS ORDERED: HYDROCODONE PO PRN (01:22)
[2017-02-09] MEDS ORDERED: Albuterol-Ipratrop 3 mg / 0.5 (3 ml) UD INH PRN (01:22)
[2017-02-09] MEDS ORDERED: ACETAMINOPHEN PO PRN (01:22)
[2017-02-09] MEDS ORDERED: Morphine 30 mg Immediate Release Tab PO PRN (01:22)
[2017-02-09] MEDS: oxyCODONE 10 mg Immediate Release Tab PO PRN ×3 (01:52→21:54)
[2017-02-09] MEDS: Morphine 30 mg Immediate Release Tab PO PRN ×2 (04:52→17:12)
[2017-02-09 05:46] LABS: HEMOGLOBIN 8.8 g/dL (12.0-16.0); MEAN CELL VOLUME 82.7 fl (81.0-99.0); MEAN CORPUSCULAR HEMOGLOBIN 26.4 pg (27.0-31.0); MEAN CORPUSCULAR HGB CONC 31.9 g/dL (33.0-37.0); RBC 3.35 Mil/uL (3.80-5.20); RED CELL DISTRIBUTION WIDTH 18.2 % (11.5-14.5); WHITE BLOOD COUNT 7.6 K/uL (4.8-10.8)
[2017-02-09 06:26] LABS: ALB/GLOB RATIO 1.2 (1.0-2.1); ALT/SGPT 32 U/L (9-52); AST/SGOT 28 U/L (14-36); BLOOD UREA NITROGEN 12 mg/dl (7-17); CALCIUM 9.4 mg/dL (8.4-10.2); GFR AFRICAN-AMERICAN > 60; GFR NON-AFRICAN AMERICAN > 60
[2017-02-09] MEDS ORDERED: Influenza Vaccine 18yr & older 0.5 ML/45 MCG SYR IM ONE (06:30)
--- NOTE | 2017-02-09 07:22 | CARD ---
APPROVED REPORT EKG Measurement Heart [id number] <Conclusion> Normal sinus rhythm Normal ECG
[2017-02-09] MEDS: MethylPREDNISolone 40 mg Vial IVP SCH ×2 (08:55→17:01)
[2017-02-09] MEDS: Cholecalciferol 1,000 INTLU TAB PO SCH (08:56)
[2017-02-09] MEDS ORDERED: Pantoprazole 40 mg EC Tab PO SCH (09:00)
--- NOTE | 2017-02-09 10:45 | CARD ---
APPROVED REPORT EXAM: Two-dimensional and M-mode echocardiogram with Doppler and color Doppler. Other Information Quality : AverageGoodRhythm : NSR INDICATION Chest Pain 2D DIMENSIONS Left Atrium (2D)3.39 (1.6-4.0cm)IVSd1.02 (0.7-1.1cm) Aortic Root (2D)2.30 (2.0-3.7cm)LVDd4.56 (3.9-5.9cm) LVOT Diameter1.65 (1.8-2.4cm)PWd0.88 (0.7-1.1cm) IVSs1.65 (0.8-1.2cm)LVDs3.51 (2.5-4.0cm) FS (%) 23.0 %PWs0.63 (0.8-1.2cm) M-Mode DIMENSIONS Left Atrium (MM)3.59 (2.5-4.0cm)IVSd1.05 (0.7-1.1cm) Aortic Root2.74 (2.2-3.7cm)LVDd4.44 (4.0-5.6cm) Aortic Cusp Exc.1.56 (1.5-2.0cm)PWd0.96 (0.7-1.1cm) IVSs1.28 cmFS (%) 54 % LVDs2.06 (2.0-3.8cm)PWs1.60 cm Mitral Valve MV E Fnyxhjvv583.8cm/sMV DECEL TQKE621nsEC A Deadfuyr15.1cm/s MV EUD46yiX/A ratio1.7MVA (PHT)4.09cm2 TDI Lateral E' Peak V14.42cm/sMedial E' Peak V13.44cm/sE/Lateral E'9.1 E/Medial E'9.7 Pulmonary Valve PV Peak Ksucpqcm174.4cm/s Tricuspid Valve TR Peak Vbsqbnpo481gb/sRAP GOFLKODP13zsPdEW Peak Gr.26mmHg APEM02glXh LEFT VENTRICLE The left ventricle is normal size. There is normal left ventricular wall thickness. The left ventricular function is normal. The left ventricular ejection fraction is within the normal range. The Ejection Fraction is 65-70%. There is normal LV segmental wall motion. The left ventricular diastolic function is normal. RIGHT VENTRICLE The right ventricle is normal size. There is normal right ventricular wall thickness. The right ventricular systolic function is normal. ATRIA The left atrium size is normal. The right atrium size is normal. The interatrial septum is intact with no evidence for an atrial septal defect. AORTIC VALVE The aortic valve is normal in structure. No aortic regurgitation is present. There is no aortic valvular stenosis. MITRAL VALVE The mitral valve is normal in structure. There is no mitral valve stenosis. There is no mitral valve regurgitation noted. TRICUSPID VALVE The tricuspid valve is normal in structure. There is no tricuspid valve regurgitation noted. There is no tricuspid valve stenosis. PULMONIC VALVE The pulmonary valve is normal in structure. There is no pulmonic valvular regurgitation. GREAT VESSELS The aortic root is normal in size. The IVC is normal in size and collapses >50% with inspiration. PERICARDIAL EFFUSION The pericardium appears normal. <Conclusion> The left ventricle is normal size. The left ventricular function is normal. The left ventricular ejection fraction is within the normal range. The Ejection Fraction is 65-70%.
--- NOTE | 2017-02-09 10:51 | CARD ---
APPROVED REPORT EKG Measurement Heart [id number] <Conclusion> Sinus tachycardia Otherwise normal ECG
--- NOTE | 2017-02-09 11:09 | RAD ---
HISTORY: sob COMPARISON: 08/09/2016 FINDINGS: LUNGS: No active pulmonary disease. PLEURA: No significant pleural effusion identified, no pneumothorax apparent. CARDIOVASCULAR: Normal. OSSEOUS STRUCTURES: No significant abnormalities. VISUALIZED UPPER ABDOMEN: Normal. OTHER FINDINGS: None. IMPRESSION: No active disease.
--- NOTE | 2017-02-09 12:37 | CP.PCM.HP ---
History of Present Illness - History of Present Illness History of Present Illness: 46 yr old F presents to ED with complaint of worsening chest tightness and shortness of breath for past 3 days. PMHx includes moderate persistent asthma, Chron's disease, pulmonary embolism (11/2015), chronic lumbar pain secondary to mulitple disc herniations and anxiety. Patient reports her chest pain is associated with a nonproductive cough. Denies fever, chills, nasal congestion, body aches, sweating, weakness, dizziness, loss of consciousness, extremity pain or palpitations. Patient reports she used her Albuterol and nebulizer treatments at home but they didn't alleviate her symptoms. Denies smoking. PMD: Dr. Garrison Present on Admission - Present on Admission Any Indicators Present on Admission: Yes History of DVT/PE: Yes History of Uncontrolled Diabetes: No Urinary Catheter: No Decubitus Ulcer Present: No History Surgical Site Infection Following: None Review of Systems - Review of Systems All systems: reviewed and no additional remarkable complaints except (for what is mentioned) - Constitutional Constitutional: absent: Chills - EENT Eyes: absent: Blurred Vision Nose/Mouth/Throat: absent: Nasal Congestion, Nasal Discharge - Cardiovascular Cardiovascular: Chest Pain. absent: Palpitations, Pedal Edema, Syncope - Respiratory Respiratory: Cough (nonproductive) - Gastrointestinal Gastrointestinal: absent: Nausea, Vomiting - Genitourinary Genitourinary: absent: Dysuria, Hematuria - Neurological Neurological: absent: Dizziness, Weakness - Endocrine Endocrine: absent: Fatigue, Palpitations Past Patient History - Infectious Disease Hx of Infectious Diseases: None - Past Medical History & Family History Past Medical History?: Yes - Past Social History Smoking Status: Never Smoked Alcohol: None Drugs: Denies - CARDIAC Hx Cardiac Disorders: Yes Hx Hypercholesterolemia: Yes Hx Hypertension: No - PULMONARY Hx Respiratory Disorders: Yes Hx Asthma: Yes Hx Bronchitis: Yes Hx Chronic Obstructive Pulmonary Disease (COPD): (asthma, bronchitis) Hx Pulmonary Embolism: Yes - NEUROLOGICAL Hx Neurological Disorder: Yes Hx Migraine: Yes Hx Seizures: No Other/Comment: diabetic neuropathy - HEENT Hx HEENT Problems: Yes Other/Comment: eye glasses - RENAL Hx Chronic Kidney Disease: No - ENDOCRINE/METABOLIC Hx Endocrine Disorders: No - HEMATOLOGICAL/ONCOLOGICAL Hx Blood Disorders: Yes Hx Anemia: Yes Hx Blood Transfusions: No Hx Human Immunodeficiency Virus (HIV): No - INTEGUMENTARY Hx Dermatological Problems: No - MUSCULOSKELETAL/RHEUMATOLOGICAL Hx Musculoskeletal Disorders: Yes Hx Back Pain: Yes Hx Falls: Yes Hx Fractures: Yes Hx Herniated Disk: Yes Hx Osteoporosis: Yes - GASTROINTESTINAL Hx Gastrointestinal Disorders: Yes Hx Colitis: Yes Hx Crohn's Disease: Yes - GENITOURINARY/GYNECOLOGICAL Hx Genitourinary Disorders: No Hx Sexually Transmitted Disorders: No - PSYCHIATRIC Hx Psychophysiologic Disorder: Yes Hx Anxiety: Yes Hx Panic Symptoms: Yes Hx Substance Use: No - SURGICAL HISTORY Hx Surgeries: Yes Hx Section: Yes Hx Cholecystectomy: Yes (2008) Hx Open Reduction Internal Fixation: Yes (left foot 5th metatarsal) Other/Comment: ingrown hair removal x12 (lower back) - ANESTHESIA Hx Anesthesia: Yes Hx Anesthesia Reactions: No Hx Malignant Hyperthermia: No Meds Allergies/Adverse Reactions: Allergies Allergy/AdvReac Type Severity Reaction Status Date / Time amoxicillin Allergy RASH Verified 05/07/16 13:15 amoxicillin trihydrate Allergy RASH Verified 05/07/16 13:15 [From Augmentin] potassium clavulanate Allergy RASH Verified 05/07/16 13:15 [From Augmentin] Physical Exam - Constitutional Appears: No Acute Distress - Head Exam Head Exam: ATRAUMATIC, NORMOCEPHALIC - Eye Exam Eye Exam: EOMI, PERRL - ENT Exam ENT Exam: Mucous Membranes Moist - Neck Exam Neck exam: Positive for: Full Rom. Negative for: Lymphadenopathy - Respiratory Exam Respiratory Exam: NORMAL BREATHING PATTERN (on 2L supplemental O2 via nasal cannula). absent: Respiratory Distress - Cardiovascular Exam Cardiovascular Exam: REGULAR RHYTHM, +S1, +S2 - GI/Abdominal Exam GI & Abdominal Exam: Normal Bowel Sounds, Soft, Tenderness (minimal diffuse tenderness to palpation) - Extremities Exam Extremities exam: Positive for: full ROM. Negative for: pedal edema - Back Exam Back exam: FULL ROM. absent: CVA tenderness (L), CVA tenderness (R) - Neurological Exam Neurological exam: Alert, CN II-XII Intact, Oriented x3 - Psychiatric Exam Psychiatric exam: Normal Affect, Normal Mood - Skin Skin Exam: Dry, Intact, Normal Color, Warm Results - Vital Signs Recent Vital Signs: Last Vital Signs Temp 97.5 F L 02/09/17 12:00 Pulse 85 02/09/17 12:00 Resp 18 02/09/17 12:00 BP 136/83 02/09/17 12:00 Pulse Ox 100 02/09/17 12:00 - Labs Result Diagrams: 02/09/17 04:20 02/09/17 04:20 Labs: Laboratory Results - last 24 hr 02/08/17 02/08/17 02/08/17 19:27 19:27 19:27 WBC 6.4 RBC 3.32 L Hgb 8.7 L Hct 27.7 L MCV 83.6 D MCH 26.1 L MCHC 31.2 L RDW 18.3 H Plt Count 204 MPV 9.7 Neut % (Auto) 57.0 Lymph % (Auto) 32.3 [place] % (Auto) 9.3 Eos % (Auto) 1.0 Baso % (Auto) 0.4 Neut # 3.6 Lymph # 2.1 [place] # 0.6 Eos # 0.1 Baso # 0.0 Sodium 144 Potassium 3.8 Chloride 108 H Carbon Dioxide 25 Anion Gap 15 BUN 16 Creatinine 0.8 Est GFR ( Amer) > 60 Est GFR (Non-Af Amer) > 60 Random Glucose 105 Lactic Acid Calcium 8.9 Total Bilirubin 0.6 AST 21 ALT 34 Alkaline Phosphatase 73 Troponin I < 0.0120 NT-Pro-B Natriuret Pep 747 H Total Protein 7.1 Albumin 3.8 Globulin 3.3 Albumin/Globulin Ratio 1.1 Influenza Typ A,B (EIA) Blood Type A POSITIVE Antibody Screen Negative BBK History Checked Patient has bt 02/08/17 02/08/17 02/09/17 19:29 19:57 04:20 WBC 7.6 RBC 3.35 L Hgb 8.8 L Hct 27.7 L MCV 82.7 MCH 26.4 L MCHC 31.9 L RDW 18.2 H Plt Count 228 MPV Neut % (Auto) Lymph % (Auto) [place] % (Auto) Eos % (Auto) Baso % (Auto) Neut # Lymph # [place] # Eos # Baso # Sodium Potassium Chloride Carbon Dioxide Anion Gap BUN Creatinine Est GFR ( Amer) Est GFR (Non-Af Amer) Random Glucose Lactic Acid 1.9 Calcium Total Bilirubin AST ALT Alkaline Phosphatase Troponin I NT-Pro-B Natriuret Pep Total Protein Albumin Globulin Albumin/Globulin Ratio Influenza Typ A,B (EIA) Negative for flu a/b Blood Type Antibody Screen BBK History Checked 02/09/17 04:20 WBC RBC Hgb Hct MCV MCH MCHC RDW Plt Count MPV Neut % (Auto) Lymph % (Auto) [place] % (Auto) Eos % (Auto) Baso % (Auto) Neut # Lymph # [place] # Eos # Baso # Sodium 144 Potassium 4.6 Chloride 107 Carbon Dioxide 23 Anion Gap 19 BUN 12 Creatinine 0.6 L Est GFR ( Amer) > 60 Est GFR (Non-Af Amer) > 60 Random Glucose 191 H Lactic Acid Calcium 9.4 Total Bilirubin 0.3 AST 28 ALT 32 Alkaline Phosphatase 71 Troponin I NT-Pro-B Natriuret Pep Total Protein 7.6 Albumin 4.0 Globulin 3.5 Albumin/Globulin Ratio 1.2 Influenza Typ A,B (EIA) Blood Type Antibody Screen BBK History Checked - EKG Data EKG Interpreted by: Other Rate: Tachycardia (sinus with HR 103) - Imaging and Cardiology CT scan - chest Additional comment: No evidence of PE Chest x-ray Additional comment: No active disease Assessment & Plan - Assessment and Plan (Free Text) Assessment: 46 yr old F admitted for Asthma exacerbation with complaint of worsening chest tightness and shortness of breath for past 3 days . PMHx includes moderate persistent asthma, Chron's disease, pulmonary embolism (11/2015), chronic lumbar pain secondary to mulitple disc herniations and anxiety. 1. Acute Asthma Exacerbation -stable, improving, hx moderate persistent asthma -CT chest negative for PE, CXR negative for active disease, EKG sinus tachycardia at HR of 103 -admit to tele -Duoneb Q6, Methylprednisolone 40mg IVP Q8 -2L supplemental O2 via nasal cannula PRN O2 sat <92% -monitor respiratory status 2. Chron's disease -chronic, stable -continue home medications: Sulfasalazine 500mg PO QID, Bentyl 10mg PO BID 3. Lumbar pain -chronic, stable -pain management: Oxycodone 30mg PO QID PRN pain, Morphine 60mg PO BID PRN pain 4. Anemia -chronic, likely anemia of chronic disease -f/u iron studies -ferrous sulfate 325mg PO TID, Colace 100mg PO BID 5. DVT prophylaxis -patient on Eliquis 5mg PO Q12 (hx of pulmonary embolism 11/2015) - Date & Time Date: 02/09/17 Time: 09:00
[2017-02-09] MEDS: Albuterol-Ipratrop 3 mg / 0.5 (3 ml) UD INH SCH ×2 (14:27→19:39)
[2017-02-09 19:51] LABS: IRON 32 ug/dL (37-170)
[2017-02-09 20:00] LABS: TOTAL IRON BINDING CAPACITY 363 ug/dL (250-450)
[2017-02-09 20:08] LABS: % IRON SATURATION 9 % (20-55)
[2017-02-10] MEDS: MethylPREDNISolone 40 mg Vial IVP SCH ×3 (00:13→16:50)
[2017-02-10] MEDS: Albuterol-Ipratrop 3 mg / 0.5 (3 ml) UD INH SCH ×4 (01:01→19:16)
[2017-02-10 08:21] VITALS: RESP 18
--- NOTE | 2017-02-10 08:46 | CP.PCM.PN ---
Subjective - Date & Time of Evaluation Date of Evaluation: 02/10/17 Time of Evaluation: 07:35 - Subjective Subjective: Patient seen and examined at bedside with attending- Dr. Garrison. Denies chest pain , weakness or dizziness. Reports intermittent difficulty breathing overnight, requiring oxygen via nasal cannula, could not sleep due to SOB. No other concerns at this time. Objective - Vital Signs/Intake and Output Vital Signs (last 24 hours): Temp Pulse Resp BP Pulse Ox 98.1 F 77 18 127/90 100 02/10/17 08:00 02/10/17 08:00 02/10/17 08:00 02/10/17 08:00 02/10/17 08:00 - Medications Medications: Current Medications Albuterol/Ipratropium (Duoneb 3 Mg/0.5 Mg (3 Ml) Ud) 3 ml INH RQ6 [facility] Last Admin: 02/10/17 07:27 Dose: 3 ml Apixaban (Eliquis) 5 mg PO Q12 [facility] PRN Reason: Protocol Last Admin: 02/09/17 21:57 Dose: 5 mg Atorvastatin Calcium (Lipitor) 20 mg PO DAILY [facility] Last Admin: 02/09/17 08:54 Dose: 20 mg Cholecalciferol (Vitamin D) 2,000 intlu PO DAILY [facility] Last Admin: 02/09/17 08:56 Dose: 2,000 intlu Clonazepam (Klonopin) 1 mg PO 0400,1000,1600,2200 [facility] Last Admin: 02/10/17 03:01 Dose: 1 mg Cyanocobalamin (Vitamin B12 1000 Mcg/Ml Inj) 1,000 mcg IM QWK [facility] Dicyclomine HCl (Bentyl) 10 mg PO TID [facility] Last Admin: 02/09/17 16:58 Dose: 10 mg Docusate Sodium (Colace) 100 mg PO BID [facility] Last Admin: 02/09/17 17:15 Dose: 100 mg Ferrous Sulfate (Feosol) 325 mg PO TID [facility] Last Admin: 02/09/17 17:12 Dose: 325 mg Gabapentin (Neurontin) 300 mg PO TID [facility] Last Admin: 02/09/17 17:01 Dose: 300 mg Home Med (Carisoprodol [Soma]) 350 mg PO QID [facility] Home Med (Hydrocodone/Acetaminophen [[place] 10-325 Tablet]) 1 tab PO QID PRN PRN Reason: Pain, severe (8-10) Home Med (Sumatriptan [Imitrex Tab]) 25 mg PO DAILY PRN PRN Reason: Migraine headache Methylprednisolone (Solu-Medrol) 40 mg IVP Q8 [facility] Last Admin: 02/10/17 00:13 Dose: 40 mg Morphine Sulfate (Morphine Immediate Release Tab) 60 mg PO BID PRN PRN Reason: Pain, moderate (4-7) Last Admin: 02/09/17 17:12 Dose: 60 mg Ondansetron HCl (Zofran Odt) 4 mg PO Q6 PRN PRN Reason: Nausea/Vomiting Oxycodone HCl (Oxycodone Immediate Release Tab) 30 mg PO QID PRN PRN Reason: Pain, severe (8-10) Last Admin: 02/09/17 21:54 Dose: 30 mg Pantoprazole Sodium (Protonix Inj) 40 mg IVP DAILY [facility] Last Admin: 02/09/17 08:55 Dose: 40 mg Sulfasalazine (Azulfidine) 500 mg PO QID [facility] PRN Reason: Protocol Last Admin: 02/09/17 22:01 Dose: 500 mg - Labs Labs: 02/09/17 04:20 02/09/17 04:20 - Constitutional Appears: Other (mild difficulty breathing) - Head Exam Head Exam: ATRAUMATIC, NORMOCEPHALIC - Eye Exam Eye Exam: EOMI, PERRL - ENT Exam ENT Exam: Mucous Membranes Moist - Neck Exam Neck Exam: Full ROM. absent: Lymphadenopathy - Respiratory Exam Respiratory Exam: NORMAL BREATHING PATTERN (on 2L supplemental O2 via nasal cannula). absent: Rales, Rhonchi - Cardiovascular Exam Cardiovascular Exam: REGULAR RHYTHM, +S1, +S2 - GI/Abdominal Exam GI & Abdominal Exam: Soft, Normal Bowel Sounds. absent: Tenderness - Extremities Exam Extremities Exam: Full ROM. absent: Pedal Edema - Neurological Exam Neurological Exam: Alert, Awake, CN II-XII Intact, Oriented x3 - Psychiatric Exam Psychiatric exam: Anxious. absent: Homicidal Ideation, Suicidal Ideation - Skin Skin Exam: Dry, Intact, Normal Color, Warm Assessment and Plan - Assessment and Plan (Free Text) Assessment: 46 yr old F admitted for Asthma exacerbation. PMHx includes moderate persistent asthma, Chron's disease, pulmonary embolism (11/2015), chronic lumbar pain secondary to multiple disc herniations and anxiety. Patient is slowly improving , still requiring supplemental O2 via nasal cannula. 1. Acute Asthma Exacerbation -stable, improving, hx moderate persistent asthma -CT chest negative for PE, CXR negative for active disease, EKG sinus tachycardia at HR of 103 -transfer to med/surg -Duoneb Q6, Methylprednisolone 40mg IVP Q8 -2L supplemental O2 via nasal cannula PRN O2 sat <92% -monitor respiratory status 2. Chron's disease -chronic, stable -continue home medications: Sulfasalazine 500mg PO QID, Bentyl 10mg PO BID 3. Lumbar pain -chronic, stable -pain management: Oxycodone 30mg PO QID PRN pain, Morphine 60mg PO BID PRN pain 4. Iron Deficiency Anemia -acute on chronic -iron studies: Iron 32, TIBC 363, % Sat 9, transferrin 315.75, ferritin 5.5 -ferrous sulfate 325mg PO TID, Colace 100mg PO BID -f/u FOBT 5. History of pulmonary embolism -chronic, resolved, diagnosed 11/2015 -unprovoked: negative blood disorder or coagulation studies -continue with Eliquis 5mg PO Q12 6. DVT prophylaxis -patient on Eliquis 5mg PO Q12 (hx of pulmonary embolism 11/2015)
[2017-02-10] MEDS: Cholecalciferol 1,000 INTLU TAB PO SCH (09:10)
[2017-02-10] MEDS: oxyCODONE 10 mg Immediate Release Tab PO PRN ×3 (09:42→22:04)
[2017-02-10] MEDS: Morphine 30 mg Immediate Release Tab PO PRN (15:13)
[2017-02-11] MEDS: MethylPREDNISolone 40 mg Vial IVP SCH ×2 (00:31→09:00)
[2017-02-11] MEDS: Albuterol-Ipratrop 3 mg / 0.5 (3 ml) UD INH SCH ×2 (01:00→07:43)
[2017-02-11] MEDS: Morphine 30 mg Immediate Release Tab PO PRN (03:30)
[2017-02-11 07:57] VITALS: BP 151/79; PULSE 62; TEMP 98; O2SAT 96
[2017-02-11] MEDS: Cholecalciferol 1,000 INTLU TAB PO SCH (08:57)
[2017-02-11] MEDS ORDERED: methylPREDNISolone Depo 80 mg/ml Inj IM ONE (08:58)
[2017-02-11] MEDS: oxyCODONE 10 mg Immediate Release Tab PO PRN (09:27)
--- NOTE | 2017-02-11 12:34 | CP.PCM.DIS ---
Provider - Provider Date of Admission: 02/09/17 15:27 Attending physician: Yovani Garrison MD Primary care physician: Dr. Garrison Time Spent in preparation of Discharge (in minutes): 30 Diagnosis - Discharge Diagnosis (1) Asthma attack Status: Resolved Priority: Low Hospital Course - Lab Results Lab Results: Micro Results 02/08/17 19:57 Blood-Venous Blood Culture - Preliminary NO GROWTH AFTER 48 HOURS 02/08/17 19:33 Blood-Venous Blood Culture - Preliminary NO GROWTH AFTER 48 HOURS Most Recent Lab Values WBC 7.6 K/uL (4.8-10.8) 02/09/17 04:20 RBC 3.35 Mil/uL (3.80-5.20) L 02/09/17 04:20 Hgb 8.8 g/dL (12.0-16.0) L 02/09/17 04:20 Hct 27.7 % (34.0-47.0) L 02/09/17 04:20 MCV 82.7 fl (81.0-99.0) 02/09/17 04:20 MCH 26.4 pg (27.0-31.0) L 02/09/17 04:20 MCHC 31.9 g/dL (33.0-37.0) L 02/09/17 04:20 RDW 18.2 % (11.5-14.5) H 02/09/17 04:20 Plt Count 228 K/uL (130-400) 02/09/17 04:20 MPV 9.7 fl (7.2-11.7) 02/08/17 19:27 Neut % (Auto) 57.0 % (50.0-75.0) 02/08/17 19:27 Lymph % (Auto) 32.3 % (20.0-40.0) 02/08/17 19:27 [place] % (Auto) 9.3 % (0.0-10.0) 02/08/17 19: Eos % (Auto) 1.0 % (0.0-4.0) 02/08/17 19:27 Baso % (Auto) 0.4 % (0.0-2.0) 02/08/17 19:27 Neut # 3.6 K/uL (1.8-7.0) 02/08/17 19:27 Lymph # 2.1 K/uL (1.0-4.3) 02/08/17 19:27 [place] # 0.6 K/uL (0.0-0.8) 02/08/17 19:27 Eos # 0.1 K/uL (0.0-0.7) 02/08/17 19:27 Baso # 0.0 K/uL (0.0-0.2) 02/08/17 19:27 Sodium 144 mmol/l (132-148) 02/09/17 04:20 Potassium 4.6 MMOL/L (3.6-5.0) 02/09/17 04:20 Chloride 107 mmol/L (98-107) 02/09/17 04:20 Carbon Dioxide 23 mmol/L (22-30) 02/09/17 04:20 Anion Gap 19 (10-20) 02/09/17 04:20 BUN 12 mg/dl (7-17) 02/09/17 04:20 Creatinine 0.6 mg/dl (0.7-1.2) L 02/09/17 04:20 Est GFR ( Amer) > 60 02/09/17 04:20 Est GFR (Non-Af Amer) > 60 02/09/17 04:20 Random Glucose 191 mg/dL (65-105) H 02/09/17 04:20 Lactic Acid 1.9 MMOL/L (0.7-2.1) 02/08/17 19:57 Calcium 9.4 mg/dL (8.4-10.2) 02/09/17 04:20 Iron 32 ug/dL (37-170) L 02/09/17 19:23 TIBC 363 ug/dL (250-450) 02/09/17 19:23 % Saturation 9 % (20-55) L 02/09/17 19:23 Transferrin 315.75 mg/dL (206-381) 02/09/17 18:30 Ferritin 5.5 ng/Ml (6.24-137.0) L 02/09/17 18:30 Total Bilirubin 0.3 mg/dl (0.2-1.3) 02/09/17 04:20 AST 28 U/L (14-36) 02/09/17 04:20 ALT 32 U/L (9-52) 02/09/17 04:20 Alkaline Phosphatase 71 U/L (38-126) 02/09/17 04:20 Troponin I < 0.0120 ng/mL (0.00-0.120) 02/08/17 19:27 NT-Pro-B Natriuret Pep 747 pg/ml (0-450) H 02/08/17 19:27 Total Protein 7.6 G/DL (6.3-8.2) 02/09/17 04:20 Albumin 4.0 g/dL (3.5-5.0) 02/09/17 04:20 Globulin 3.5 gm/dL (2.2-3.9) 02/09/17 04:20 Albumin/Globulin Ratio 1.2 (1.0-2.1) 02/09/17 04:20 Influenza Typ A,B (EIA) Negative for flu a/b (NEGATIVE) 02/08/17 19:29 Blood Type A POSITIVE 02/08/17 19:27 Antibody Screen Negative 02/08/17 19:27 BBK History Checked Patient has bt 02/08/17 19:27 - Hospital Course Hospital Course: 46 yr old F admitted for asthma exacerbation. SOB and chest tightness improved s /p treatment with duonebs, IV steroids and supplemental O2. Patient seen and examined at bedside with attending Dr. Garrison. Patient appears comfortable sitting in bed, eating breakfast, in no acute distress. claims she experienced a fall while walking to the bathroom at 2am, no signs of injury, patient did not report fall until this AM and claims she walked afterwards to the refrigerator and placed a jello over her back. No other concerns or complaints at this time. Patient is stable for discharge with instructions to follow up with PMD and pain management doctor within 1 week. - Date & Time of H&P Date of H&P: 02/09/17 Time of H&P: 12:37 Discharge Exam - Head Exam Head Exam: ATRAUMATIC, NORMOCEPHALIC - Eye Exam Eye Exam: EOMI, PERRL - ENT Exam ENT Exam: Mucous Membranes Moist - Neck Exam Neck exam: Full Rom - Respiratory Exam Respiratory Exam: NORMAL BREATHING PATTERN - Cardiovascular Exam Cardiovascular Exam: REGULAR RHYTHM, +S1, +S2 - GI/Abdominal Exam GI & Abdominal Exam: Normal Bowel Sounds, Soft. absent: Tenderness - Extremities Exam Extremities exam: full ROM - Neurological Exam Neurological exam: Alert, CN II-XII Intact, Normal Gait, Oriented x3 - Psychiatric Exam Psychiatric exam: Normal Affect, Normal Mood - Skin Skin Exam: Dry, Intact, Normal Color, Warm Discharge Plan - Discharge Medications Prescriptions: Albuterol HFA [Ventolin HFA 90 mcg/actuation (8 g)] 2 puff IH Q6H PRN #1 inhaler PRN Reason: Shortness Of Breath Albuterol/Ipratropium [Duoneb 3 mg/0.5 mg (3 ml) UD] 3 ml INH Q6H PRN #1 b PRN Reason: Shortness Of Breath Apixaban [Eliquis] 5 mg PO Q12H #60 tab Atorvastatin [Lipitor] 20 mg PO DAILY #30 tab Cholecalciferol (Vitamin D3) [Vitamin D3] 2,000 units PO DAILY #30 tablet clonazePAM [Klonopin] 1 mg PO QID #120 tab Docusate [Colace] 100 mg PO BID #60 cap Ferrous Sulfate [Feosol] 325 mg PO TID #90 tab Pantoprazole [Protonix EC Tab] 40 mg PO DAILY #30 ect SulfaSALAzine [Azulfidine] 500 mg PO QID #120 tab - Follow Up Plan Condition: GUARDED Disposition: HOME/ ROUTINE Instructions: Asthma (DC), Iron Rich Diet (DC), Iron Deficiency Anemia (DC) Additional Instructions: -Follow up with your PMD within 1 week -Take your medications as prescribed Referrals: Yovani Garrison MD [Staff Provider] - Pastor Cummings MD [Medical Doctor] - Clinical Quality Measures - Date & Time of Discharge Summary Date of Discharge Summary: 02/11/17 Time of Discharge Summary: 17:10
== END 2017-02-11 11:39 | disposition home or self-care (01) | DRG 97 ==
LOC: H.ER 18:31 → H.ERHOLD 22:30 → H.TEL 02-09 00:14 → OBSVTOIN 02-09 15:27 → H.MEDSURG1 02-10 15:20
PROVIDERS: ADMIT Internal Medicine; ATTEND Internal Medicine
PROC: 3E0234Z Introduction of Serum, Toxoid and Vaccine into Muscle, Percutaneous Approach (ICD-10-PCS; principal; 2017-02-09)
DX: J45.41 Moderate persistent asthma with (acute) exacerbation (principal); K50.90 Crohn's disease, unspecified, without complications; F41.9 Anxiety disorder, unspecified; E78.00 Pure hypercholesterolemia, unspecified; M81.0 Age-related osteoporosis without current pathological fracture; G43.909 Migraine, unspecified, not intractable, without status migrainosus; G89.29 Other chronic pain; D50.9 Iron deficiency anemia, unspecified; Z88.0 Allergy status to penicillin; Z23 Encounter for immunization

== ENCOUNTER 2017-03-24 09:27 | Inpatient (IN) | payer MEDICAID ==
[2017-03-24 09:27] VITALS: BMI 30.4
[2017-03-24] MEDS ORDERED: Albuterol-Ipratrop 3 mg / 0.5 (3 ml) UD INH STA ×3 (10:02→10:35)
[2017-03-24] MEDS ORDERED: Albuterol-Ipratrop 3 mg / 0.5 (3 ml) UD ONE (10:03)
[2017-03-24] MEDS ORDERED: Sodium Chloride 0.45% 1,000 ML IV SCH (10:15)
[2017-03-24 10:45] LABS: BASO % 0.2 % (0.0-2.0); EOS % 0.1 % (0.0-4.0); LYMPH # 0.8 K/uL (1.0-4.3); LYMPH % 17.1 % (20.0-40.0); MEAN CELL VOLUME 82.6 fl (81.0-99.0); MEAN CORPUSCULAR HEMOGLOBIN 26.6 pg (27.0-31.0); MEAN CORPUSCULAR HGB CONC 32.2 g/dL (33.0-37.0); MEAN PLATELET VOLUME 8.6 fl (7.2-11.7); MONO # 0.5 K/uL (0.0-0.8); MONO % 10.6 % (0.0-10.0); NEUT # 3.4 K/uL (1.8-7.0); NRBC % 0.1 % (0.0-0.0); RBC 4.14 Mil/uL (3.80-5.20); RED CELL DISTRIBUTION WIDTH 22.8 % (11.5-14.5); WHITE BLOOD COUNT 4.7 K/uL (4.8-10.8)
[2017-03-24 10:53] LABS: BLOOD UREA NITROGEN 10 mg/dl (7-17); CALCIUM 9.5 mg/dL (8.4-10.2); GFR AFRICAN-AMERICAN > 60; GFR NON-AFRICAN AMERICAN > 60
--- NOTE | 2017-03-24 10:57 | ED PDOC ---
HPI: SOB/CHF/COPD Time Seen by Provider: 03/24/17 09:38 Chief Complaint (Nursing): Shortness Of Breath Chief Complaint (Provider): Cough, Shortness Of Breath History Per: Patient History/Exam Limitations: no limitations Onset/Duration Of Symptoms: Days (x 5) Current Symptoms Are (Timing): Still Present Additional Complaint(s): Barbara is a 46 y/o female with a history of asthma who presents to the ED complaining of cough and shortness of breath since Wednesday. Patient has been using inhalers more over the past few days and is now unable to breathe properly , complaining of wheezing, coughing, and shortness of breath. She was admitted one month ago for asthma exacerbation. Patient has never been intubated but has been to the ICU because of asthma. PMD: Dr. Garrison Past Medical History Reviewed: Historical Data, Nursing Documentation, Vital Signs Vital Signs: Last Vital Signs Temp 98.2 F 03/24/17 09:39 Pulse 90 03/24/17 09:39 Resp 18 03/24/17 09:39 BP 136/84 03/24/17 09:39 Pulse Ox 96 03/24/17 11:47 - Medical History PMH: Anemia, Anxiety, Asthma, Back Problems, Bronchitis, Crohn's Disease, Fractures, Hypercholesterolemia, Migraine, Osteoporosis, Pulmonary Embolism, Chronic Pain (Herniated disks and pinched nerves ) Denies: Diabetes, Hepatitis, HIV, HTN, Chronic Kidney Disease, Seizures, Sexually Transmitted Disease Comment Only: COPD (asthma, bronchitis) - Surgical History Surgical History: Cholecystectomy (2009), (1x) Other surgeries: foot surgery - Family History Family History: States: Unknown Family Hx - Social History Current smoker - smoking cessation education provided: No Alcohol: None - Home Medications Home Medications: Ambulatory Orders Medication Instructions Recorded SUMAtriptan [Imitrex Tab] 25 mg PO DAILY PRN 06/24/14 Dicyclomine [Bentyl] 10 mg PO TID 10/21/15 Gabapentin [Neurontin] 300 mg PO TID 11/27/15 Ondansetron ODT [Zofran ODT] 4 mg PO Q6 PRN #10 odt 08/09/16 Carisoprodol [Soma] 350 mg PO QID 09/08/16 Cyanocobalamin [Vitamin B12 1000 1,000 mcg IM QWK 09/08/16 mcg/ml Inj] Morphine [MS Contin] 60 mg PO BID PRN 09/08/16 Hydrocodone/Acetaminophen [[place] 1 tab PO QID PRN 02/08/17 10-325 Tablet] Oxycodone HCl [Roxicodone] 30 mg PO QID PRN 02/08/17 Albuterol HFA [Ventolin HFA 90 2 puff IH Q6H PRN #1 inhaler 02/11/17 mcg/actuation (8 g)] Albuterol/Ipratropium [Duoneb 3 3 ml INH Q6H PRN #1 b 02/11/17 mg/0.5 mg (3 ml) UD] Apixaban [Eliquis] 5 mg PO Q12H #60 tab 02/11/17 Atorvastatin [Lipitor] 20 mg PO DAILY #30 tab 02/11/17 Cholecalciferol (Vitamin D3) 2,000 units PO DAILY #30 tablet 02/11/17 [Vitamin D3] Docusate [Colace] 100 mg PO BID #60 cap 02/11/17 Ferrous Sulfate [Feosol] 325 mg PO TID #90 tab 02/11/17 Pantoprazole [Protonix EC Tab] 40 mg PO DAILY #30 ect 02/11/17 SulfaSALAzine [Azulfidine] 500 mg PO QID #120 tab 02/11/17 clonazePAM [Klonopin] 1 mg PO QID #120 tab 02/11/17 - Allergies Allergies/Adverse Reactions: Allergies Allergy/AdvReac Type Severity Reaction Status Date / Time amoxicillin Allergy RASH Verified 05/07/16 13:15 amoxicillin trihydrate Allergy RASH Verified 03/24/17 09:39 [From Augmentin] potassium clavulanate Allergy RASH Verified 05/07/16 13:15 [From Augmentin] Review of Systems ROS Statement: Except As Marked, All Systems Reviewed And Found Negative Constitutional: Negative for: Fever, Chills Respiratory: Positive for: Cough, Shortness of Breath Gastrointestinal: Negative for: Nausea, Vomiting Physical Exam - Reviewed Nursing Documentation Reviewed: Yes Vital Signs Reviewed: Yes - Physical Exam Appears: Positive for: No Acute Distress Head Exam: Positive for: ATRAUMATIC, NORMOCEPHALIC Skin: Positive for: Normal Color, Warm, Dry. Negative for: Rash Neck: Positive for: Normal, Painless ROM, Supple Cardiovascular/Chest: Positive for: Regular Rate, Rhythm. Negative for: Murmur Respiratory: Positive for: Wheezing (bilateral inspiratory and expiratory), Other (prolonged inspiratory phase). Negative for: Rales Gastrointestinal/Abdominal: Positive for: Normal Exam, Soft. Negative for: Tenderness Extremity: Negative for: Pedal Edema Neurologic/Psych: Positive for: Alert (speaking full sentences), Oriented - Laboratory Results Result Diagrams: 03/24/17 10:20 03/24/17 10:20 - ECG O2 Sat by Pulse Oximetry: 96 (RA) Pulse Ox Interpretation: Normal Medical Decision Making Medical Decision Making: Time: 10:02 Initial Impression: Acute exacerbation of asthma Initial Plan: --EKG --BMP --CMP --Duoneb x 3 --Solu-Medrol --Zofran --Flu Swab Flu Swab: Negative Time: 11:24 CHEST XR FINDINGS: LUNGS: No active pulmonary disease. PLEURA: No significant pleural effusion identified. No pneumothorax apparent. CARDIOVASCULAR: Borderline cardiomegaly. Minimal prominence to the ascending aorta. Correlate with any hypertension history. Prior image apical lordotic OSSEOUS STRUCTURES: No significant abnormalities. VISUALIZED UPPER ABDOMEN: Right upper quadrant cholecystectomy clips inferred OTHER FINDINGS: None. IMPRESSION: No active disease. Scribe Attestation: Documented by Terrance Thompson, acting as a scribe for Dr. Unique Jurado MD. Provider Scribe Attestation: All medical record entries made by the Scribe were at my direction and personally dictated by me. I have reviewed the chart and agree that the record accurately reflects my personal performance of the history, physical exam, medical decision making, and the department course for this patient. I have also personally directed, reviewed, and agree with the discharge instructions and disposition. 12.00pm - patient is still wheezing diffusely and coughing. She is not in respiratory distress. Will admit to obs-MS under Dr. Garrison. Case d/w with Dr. Garrison and his resident. Disposition - Clinical Impression Clinical Impression: Exacerbation of asthma - Patient ED Disposition Is Patient to be Admitted: Yes Doctor Will See Patient In The: Hospital Counseled Patient/Family Regarding: Diagnosis - Disposition Disposition Time: 12:00 Condition: FAIR Forms: [facility] (Swedish) - Pt Status Changed To: Hospital Disposition Of: Observation - POA Present On Arrival: None
--- NOTE | 2017-03-24 11:26 | RAD ---
HISTORY: asthma COMPARISON: 02/08/2017 TECHNIQUE: Chest PA and lateral FINDINGS: LUNGS: No active pulmonary disease. PLEURA: No significant pleural effusion identified. No pneumothorax apparent. CARDIOVASCULAR: Borderline cardiomegaly. Minimal prominence to the ascending aorta. Correlate with any hypertension history. Prior image apical lordotic OSSEOUS STRUCTURES: No significant abnormalities. VISUALIZED UPPER ABDOMEN: Right upper quadrant cholecystectomy clips inferred OTHER FINDINGS: None. IMPRESSION: No active disease.
[2017-03-24] MEDS ORDERED: Acetaminophen-Codeine 300/30 mg Tab PO PRN ×2 (13:03→13:06)
[2017-03-24] MEDS ORDERED: SUMATRIPTAN SUCCINATE 50 MG PO PRN (13:12)
[2017-03-24] MEDS ORDERED: Magnesium Sulfate 2 gm/50 ml 2 GM/50 ML BAG IVPB ONE (13:25)
[2017-03-24] MEDS ORDERED: Morphine 30 mg SR Tab PO SCH (13:30)
[2017-03-24] MEDS ORDERED: Magnesium Sulfate 2 gm/50 ml 2 GM/50 ML BAG ONE (14:04)
--- NOTE | 2017-03-24 14:04 | CARD ---
APPROVED REPORT EKG Measurement Heart [id number] <Conclusion> Normal sinus rhythm Normal ECG
[2017-03-24] MEDS ORDERED: guaiFENesin-DM 600-30 mg ER Tab PO SCH (17:30)
[2017-03-24] MEDS: Albuterol-Ipratrop 3 mg / 0.5 (3 ml) UD INH SCH ×2 (18:20→23:24)
[2017-03-24] MEDS: Pantoprazole 40 mg EC Tab PO SCH (18:26)
[2017-03-24] MEDS: oxyCODONE 10 mg Immediate Release Tab PO PRN (19:01)
[2017-03-24] MEDS: Morphine 30 mg SR Tab PO PRN (22:42)
[2017-03-25] MEDS: oxyCODONE 10 mg Immediate Release Tab PO PRN ×4 (01:31→21:44)
[2017-03-25] MEDS: Albuterol-Ipratrop 3 mg / 0.5 (3 ml) UD INH SCH ×4 (02:43→20:01)
--- NOTE | 2017-03-25 07:50 | CP.PCM.HP ---
Addendum entered and electronically signed by Collin Hawthorne MD 03/25/17 13:43 : PE: General : NAD Resp: Diffuse wheezing noted in all lung ward. 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 PMHx includes moderate persistent asthma, Chron's disease, pulmonary embolism (11/2015), chronic lumbar pain secondary to multiple disc herniations and anxiety. Patient states she has been compliant with her medications at home , she has been using her inhalers and nebulizers and hasn't received much relief. She was admitted one month for similar symptoms. She has never been intubated. Denies fever, chills, nasal congestion, body aches, sweating, weakness, dizziness, loss of consciousness, extremity pain or palpitations. Denies smoking. PMD: Dr. Garrison Present on Admission - Present on Admission Any Indicators Present on Admission: Yes History of DVT/PE: Yes Past Patient History - Infectious Disease Hx of Infectious Diseases: None - Past Medical History & Family History Past Medical History?: Yes - Past Social History Smoking Status: Never Smoked - CARDIAC Hx Cardiac Disorders: Yes Hx Hypotension: Yes - PULMONARY Hx Respiratory Disorders: Yes Hx Asthma: Yes Hx Bronchitis: Yes Hx Chronic Obstructive Pulmonary Disease (COPD): Yes - NEUROLOGICAL Hx Neurological Disorder: Yes Hx Migraine: Yes - HEENT Hx HEENT Problems: Yes Other/Comment: eye glasses - RENAL Hx Chronic Kidney Disease: No - ENDOCRINE/METABOLIC Hx Endocrine Disorders: No - HEMATOLOGICAL/ONCOLOGICAL Hx Blood Disorders: Yes Hx Anemia: Yes Hx Human Immunodeficiency Virus (HIV): No - INTEGUMENTARY Hx Dermatological Problems: No - MUSCULOSKELETAL/RHEUMATOLOGICAL Hx Musculoskeletal Disorders: Yes Hx Falls: No Hx Fractures: Yes Hx Osteoarthritis: Yes - GASTROINTESTINAL Hx Gastrointestinal Disorders: Yes Hx Crohn's Disease: Yes - GENITOURINARY/GYNECOLOGICAL Hx Sexually Transmitted Disorders: No - PSYCHIATRIC Hx Psychophysiologic Disorder: Yes Hx Anxiety: Yes Hx Panic Symptoms: Yes Hx Substance Use: No - SURGICAL HISTORY Hx Surgeries: Yes Hx Cholecystectomy: Yes (2008) Hx Open Reduction Internal Fixation: Yes (left foot 5th metatarsal) - ANESTHESIA Hx Anesthesia: Yes Hx Anesthesia Reactions: No Hx Malignant Hyperthermia: No Has any member of the family had a problem w/ anesthesia?: No Meds Allergies/Adverse Reactions: Allergies Allergy/AdvReac Type Severity Reaction Status Date / Time amoxicillin Allergy RASH Verified 05/07/16 13:15 amoxicillin trihydrate Allergy RASH Verified 03/24/17 09:39 [From Augmentin] potassium clavulanate Allergy RASH Verified 05/07/16 13:15 [From Augmentin] Results - Vital Signs Recent Vital Signs: Last Vital Signs Temp 98.6 F 03/25/17 00:22 Pulse 76 03/25/17 00:22 Resp 18 03/25/17 00:22 BP 103/65 03/25/17 00:22 Pulse Ox 95 03/25/17 00:22 - Labs Result Diagrams: 03/24/17 10:20 03/24/17 10:20 Labs: Laboratory Results - last 24 hr 03/24/17 03/24/17 03/24/17 09:39 10:20 10:20 WBC 4.7 L RBC 4.14 Hgb 11.0 L D Hct 34.2 MCV 82.6 MCH 26.6 L MCHC 32.2 L RDW 22.8 H Plt Count 223 MPV 8.6 Neut % (Auto) 72.0 Lymph % (Auto) 17.1 L [place] % (Auto) 10.6 H Eos % (Auto) 0.1 Baso % (Auto) 0.2 Neut # (Auto) 3.4 Lymph # (Auto) 0.8 L [place] # (Auto) 0.5 Eos # (Auto) 0.0 Baso # (Auto) 0.0 Sodium 144 Potassium 3.7 Chloride 100 Carbon Dioxide 26 Anion Gap 22 H BUN 10 Creatinine 0.6 L Est GFR ( Amer) > 60 Est GFR (Non-Af Amer) > 60 POC Glucose (mg/dL) 167 H Random Glucose 156 H Calcium 9.5 Influenza Typ A,B (EIA) 03/24/17 10:20 WBC RBC Hgb Hct MCV MCH MCHC RDW Plt Count MPV Neut % (Auto) Lymph % (Auto) [place] % (Auto) Eos % (Auto) Baso % (Auto) Neut # (Auto) Lymph # (Auto) [place] # (Auto) Eos # (Auto) Baso # (Auto) Sodium Potassium Chloride Carbon Dioxide Anion Gap BUN Creatinine Est GFR ( Amer) Est GFR (Non-Af Amer) POC Glucose (mg/dL) Random Glucose Calcium Influenza Typ A,B (EIA) Negative for flu a/b Assessment & Plan - Assessment and Plan (Free Text) Assessment: 46 yr old F admitted for Asthma exacerbation with complaint of productive cough and shortness of breath for past 3 days . PMHx includes moderate persistent asthma, Chron's disease, pulmonary embolism (11/2015), chronic lumbar pain secondary to mulitple disc herniations and anxiety. 1. Acute Asthma Exacerbation -stable, improving, hx moderate persistent asthma -admit to med surg - Duoneb x 3 in and Magnesium 2 grams given in ER -Duoneb Q4, Methylprednisolone 60 Q8 -Currently saturating at 95 % on room air -monitor respiratory status 2. Chron's disease -chronic, stable -continue home medications: Sulfasalazine 500mg PO QID, Bentyl 10mg PO BID 3. Lumbar pain -chronic, stable -pain management: 4. Anemia -chronic, likely anemia of chronic disease -ferrous sulfate 325mg PO TID, Colace 100mg PO BID - HB improved compared to previous admission. Hb of 11 5. DVT prophylaxis -patient on Eliquis 5mg PO Q12 (hx of pulmonary embolism 11/2015) <Yovani Garrison - Last Filed: 03/26/17 16:51> Results - Vital Signs Recent Vital Signs: Last Vital Signs Temp 98.6 F 03/26/17 16:37 Pulse 87 03/26/17 16:37 Resp 20 03/26/17 16:37 BP 106/60 03/26/17 16:37 Pulse Ox 98 03/26/17 16:37 - Labs Result Diagrams: 03/24/17 10:20 03/24/17 10:20 Assessment & Plan - Assessment and Plan (Free Text) Assessment: Patient was personally seen and examined by me in rounds with residents. Available labs and diagnostic data reviewed. Case, Patient's condition and management plan discussed with residents in rounds. Agree with resident's documentation. Plan: As ordered. Yovani Garrison MD
[2017-03-25] MEDS ORDERED: Albuterol-Ipratrop 3 mg / 0.5 (3 ml) UD INH SCH (08:00)
[2017-03-25] MEDS ORDERED: Promethazine/Cod 6.25mg-10mg/5ml Syr UD PO PRN (08:10)
[2017-03-25] MEDS ORDERED: guaiFENesin DM 200 mg-20 mg/10 ml UD PO PRN (08:13)
[2017-03-25] MEDS: Pantoprazole 40 mg EC Tab PO SCH (09:51)
[2017-03-25] MEDS: Morphine 30 mg SR Tab PO PRN ×2 (11:12→23:07)
[2017-03-25] MEDS: Promethazine DM 6.25 mg-15 mg/5 ml Syrup PO PRN ×3 (11:12→23:09)
[2017-03-26] MEDS: Albuterol-Ipratrop 3 mg / 0.5 (3 ml) UD INH SCH ×6 (00:14→19:14)
[2017-03-26] MEDS: oxyCODONE 10 mg Immediate Release Tab PO PRN ×4 (04:36→21:52)
[2017-03-26] MEDS: Promethazine DM 6.25 mg-15 mg/5 ml Syrup PO PRN ×3 (04:38→18:14)
[2017-03-26] MEDS: Pantoprazole 40 mg EC Tab PO SCH (08:13)
--- NOTE | 2017-03-26 10:15 | PN ---
DATE: 03/26/2017 SUBJECTIVE: The patient seen and examined. Interim events noted. The patient remains in regular medical floor. Still complains of shortness of breath and coughing. No chest pain. PHYSICAL EXAMINATION: GENERAL: The patient is in no acute distress. VITAL SIGNS: Stable. HEART: S1 and S2, normal and regular. LUNGS: Good bilateral air exchange. ABDOMEN: Soft and nontender. LUNGS: Exam shows bilateral wheezing and prolonged expiration. EXTREMITIES: No edema. No calf swelling. No tenderness. No acute ischemia. 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 DIAGNOSTIC DATA: Available diagnostic data reviewed. PLAN: Overall, the patient's general medical condition is stable bronchial asthma. PLAN: Plan as ordered. Case and plan discussed with the patient. Yovani Garrison MD
[2017-03-26] MEDS: Morphine 30 mg SR Tab PO PRN (11:34)
[2017-03-27] MEDS: Morphine 30 mg SR Tab PO PRN ×2 (00:41→12:45)
[2017-03-27] MEDS: Albuterol-Ipratrop 3 mg / 0.5 (3 ml) UD INH SCH ×6 (00:45→19:44)
[2017-03-27] MEDS: Promethazine DM 6.25 mg-15 mg/5 ml Syrup PO PRN ×3 (01:38→18:28)
[2017-03-27 07:21] LABS: HEMOGLOBIN 11.3 g/dL (12.0-16.0); MEAN CELL VOLUME 83.7 fl (81.0-99.0); MEAN CORPUSCULAR HGB CONC 32.3 g/dL (33.0-37.0); RBC 4.18 Mil/uL (3.80-5.20); RED CELL DISTRIBUTION WIDTH 22.9 % (11.5-14.5); WHITE BLOOD COUNT 11.6 K/uL (4.8-10.8)
[2017-03-27 07:42] LABS: BLOOD UREA NITROGEN 22 mg/dl (7-17); CALCIUM 9.7 mg/dL (8.4-10.2); GFR AFRICAN-AMERICAN > 60; GFR NON-AFRICAN AMERICAN > 60
[2017-03-27] MEDS: oxyCODONE 10 mg Immediate Release Tab PO PRN ×3 (08:42→21:01)
[2017-03-27] MEDS: Insulin Lispro (humaLOG) 100 Units/ml Inj SC SCH ×4 (08:44→22:43)
[2017-03-27] MEDS: Pantoprazole 40 mg EC Tab PO SCH (08:45)
[2017-03-27 10:43] LABS: HEMOGLOBIN 11.2 g/dL (12.0-16.0); MEAN CELL VOLUME 83.7 fl (81.0-99.0); MEAN CORPUSCULAR HEMOGLOBIN 26.9 pg (27.0-31.0); MEAN CORPUSCULAR HGB CONC 32.2 g/dL (33.0-37.0); RBC 4.15 Mil/uL (3.80-5.20); RED CELL DISTRIBUTION WIDTH 22.6 % (11.5-14.5); WHITE BLOOD COUNT 11.9 K/uL (4.8-10.8)
[2017-03-28] MEDS: Albuterol-Ipratrop 3 mg / 0.5 (3 ml) UD INH SCH ×6 (00:30→19:11)
[2017-03-28] MEDS: Promethazine DM 6.25 mg-15 mg/5 ml Syrup PO PRN ×4 (01:00→23:18)
[2017-03-28] MEDS: oxyCODONE 10 mg Immediate Release Tab PO PRN ×4 (03:52→22:20)
[2017-03-28 07:27] LABS: ALB/GLOB RATIO 1.1 (1.0-2.1); ALBUMIN 4.3 g/dL (3.5-5.0); ALT/SGPT 32 U/L (9-52); AST/SGOT 25 U/L (14-36); BLOOD UREA NITROGEN 25 mg/dl (7-17); CALCIUM 9.5 mg/dL (8.4-10.2); GFR AFRICAN-AMERICAN > 60; GFR NON-AFRICAN AMERICAN > 60
[2017-03-28] MEDS: Insulin Lispro (humaLOG) 100 Units/ml Inj SC SCH ×3 (09:31→16:10)
[2017-03-28] MEDS: Pantoprazole 40 mg EC Tab PO SCH (09:32)
[2017-03-28] MEDS: Morphine 30 mg SR Tab PO PRN (13:26)
[2017-03-29] MEDS: Albuterol-Ipratrop 3 mg / 0.5 (3 ml) UD INH SCH ×6 (00:23→19:15)
[2017-03-29] MEDS: Insulin Lispro (humaLOG) 100 Units/ml Inj SC SCH ×5 (00:26→22:58)
[2017-03-29] MEDS: Morphine 30 mg SR Tab PO PRN ×2 (00:30→12:15)
[2017-03-29] MEDS: oxyCODONE 10 mg Immediate Release Tab PO PRN ×4 (05:19→22:54)
[2017-03-29 05:46] LABS: HEMOGLOBIN 11.1 g/dL (12.0-16.0); MEAN CELL VOLUME 83.9 fl (81.0-99.0); MEAN CORPUSCULAR HGB CONC 30.9 g/dL (33.0-37.0); RBC 4.27 Mil/uL (3.80-5.20); RED CELL DISTRIBUTION WIDTH 22.2 % (11.5-14.5); WHITE BLOOD COUNT 8.7 K/uL (4.8-10.8)
[2017-03-29 05:59] LABS: ALB/GLOB RATIO 1.1 (1.0-2.1); ALT/SGPT 38 U/L (9-52); AST/SGOT 32 U/L (14-36); BLOOD UREA NITROGEN 24 mg/dl (7-17); CALCIUM 9.2 mg/dL (8.4-10.2); GFR AFRICAN-AMERICAN > 60; GFR NON-AFRICAN AMERICAN > 60
[2017-03-29] MEDS: Pantoprazole 40 mg EC Tab PO SCH (08:18)
--- NOTE | 2017-03-29 08:58 | PN ---
DATE: 03/28/2017 SUBJECTIVE: The patient is seen and examined. Interim events noted. The patient still complains of coughing. Breathing is slightly better, but still has exacerbation related to shortness of breath on exertion. PHYSICAL EXAMINATION: GENERAL: The patient is in no acute distress. VITAL SIGNS: Stable. HEART: S1 and S2, normal and regular. LUNGS: Good bilateral air exchange. The patient still has bilateral rhonchi. Wheezing improved. ABDOMEN: Soft and nontender, no organomegaly noted. Bowel sounds are . PLAN: Overall, the patient still has acute exacerbation of bronchial asthma, which is not totally controlled. We will continue IV today. Plan as ordered. Case and plan discussed with the patient. Yovani Garrison MD
--- NOTE | 2017-03-29 09:00 | PN ---
DATE: SUBJECTIVE: The patient is seen and examined. Interim events noted. The patient still feels exertional shortness of breath and coughing. No shortness of breath at rest. The patient is wheezing on and off. PHYSICAL EXAMINATION GENERAL: The patient is in no acute distress. VITAL SIGNS: Stable. HEART: S1 and S2, normal and regular. LUNGS: Good bilateral air exchange, but the patient does have bilateral rhonchi. ABDOMEN: Soft and nontender. No organomegaly. No fluid. Bowel sounds are present and normal. EXTREMITIES: No edema. No calf swelling. No tenderness. No acute ischemia. CENTRAL NERVOUS SYSTEM: Exam is essentially unchanged. DIAGNOSTIC DATA: Available diagnostic data reviewed. IMPRESSION AND PLAN: Overall, the patient's general medical condition is stable and is slowly improving, but exacerbation. Plan as ordered. Yovani Garrison MD
--- NOTE | 2017-03-29 10:31 | PN ---
DATE: 03/29/2017 SUBJECTIVE: The patient seen and examined. Interim events noted. The patient still complains of shortness of breath, although it did improve. The patient was able to walk to the bathroom without oxygen, but exertion did precipitate her shortness of breath and wheezing still continues. PHYSICAL EXAMINATION GENERAL: The patient is in no acute distress. VITAL SIGNS: Stable. HEART: S1 and S2, normal and regular. LUNGS: Good bilateral air exchange. Lungs exam reveals diffuse bilateral rhonchi and minimal wheezing. ABDOMEN: Soft and nontender. No organomegaly. No fluid. Bowel sounds are present and normal. EXTREMITIES: No edema. No calf swelling. No tenderness. No acute ischemia. CENTRAL NERVOUS SYSTEM: Exam is essentially unchanged. DIAGNOSTIC DATA: Available diagnostic data reviewed. ASSESSMENT AND PLAN: Overall, the patient's general medical condition is improving, but states the patient has significant exacerbation of asthma. Plan as ordered. Yovani Garrison MD
[2017-03-29] MEDS: Promethazine DM 6.25 mg-15 mg/5 ml Syrup PO PRN (11:19)
[2017-03-29] MEDS ORDERED: Promethazine DM 6.25 mg-15 mg/5 ml Syrup PO PRN (13:21)
[2017-03-29] MEDS: Promethazine DM 12.5 mg-30 mg/10 ml Syrup PO PRN ×2 (16:58→22:56)
[2017-03-30] MEDS: Morphine 30 mg SR Tab PO PRN ×2 (00:08→12:59)
[2017-03-30] MEDS: Albuterol-Ipratrop 3 mg / 0.5 (3 ml) UD INH SCH ×6 (00:16→20:04)
[2017-03-30] MEDS: oxyCODONE 10 mg Immediate Release Tab PO PRN ×4 (05:05→23:41)
[2017-03-30] MEDS: Promethazine DM 12.5 mg-30 mg/10 ml Syrup PO PRN ×4 (05:05→23:41)
[2017-03-30] MEDS: Pantoprazole 40 mg EC Tab PO SCH (08:01)
[2017-03-30] MEDS: Insulin Lispro (humaLOG) 100 Units/ml Inj SC SCH ×4 (08:02→22:03)
[2017-03-30 09:04] LABS: HEMOGLOBIN 11.3 g/dL (12.0-16.0); MEAN CELL VOLUME 83.1 fl (81.0-99.0); MEAN CORPUSCULAR HEMOGLOBIN 26.1 pg (27.0-31.0); MEAN CORPUSCULAR HGB CONC 31.4 g/dL (33.0-37.0); RBC 4.35 Mil/uL (3.80-5.20); RED CELL DISTRIBUTION WIDTH 22.2 % (11.5-14.5); WHITE BLOOD COUNT 11.4 K/uL (4.8-10.8)
[2017-03-30 09:25] LABS: BLOOD UREA NITROGEN 23 mg/dl (7-17); GFR AFRICAN-AMERICAN > 60; GFR NON-AFRICAN AMERICAN > 60
--- NOTE | 2017-03-30 09:49 | PN ---
DATE: 03/30/2017 SUBJECTIVE: The patient is seen and examined. Interim events noted. The patient feels a little better, still have blood pressure elevation. Not able to ambulate a lot without getting short of breath. She is able to go to bathroom and walk a little bit. No chest pain. PHYSICAL EXAMINATION: GENERAL: The patient is in no acute distress. VITAL SIGNS: Stable. HEART: S1 and S2, normal and regular. LUNGS: The patient still has bilateral rhonchi . ABDOMEN: Soft and nontender. No organomegaly. No fluid. Bowel sounds are present and normal. EXTREMITIES: No edema. No calf swelling. No tenderness. No acute ischemia. CENTRAL NERVOUS SYSTEM: Exam is essentially unchanged. DIAGNOSTIC DATA: Available diagnostic data reviewed. PLAN: Overall, the patient is clinically stable and improving. Plan as ordered. We will try to do . Yovani Garrison MD
[2017-03-30 12:22] LABS: ABG ALLEN TEST YES; ARTERIAL BLOOD GAS HEMOGLOBIN 11.5 g/dL (11.7-17.4); ARTERIAL BLOOD GAS O2 CAPACITY 15.5 mL/dL (16-24); ARTERIAL BLOOD GAS O2 CONTENT 15.5 ML/dL (15-23); ARTERIAL BLOOD GAS O2 SAT 99.9 % (95-98); ARTERIAL BLOOD GAS PCO2 40 mm/Hg (35-45); ARTERIAL BLOOD GAS PH 7.49 (7.35-7.45); ARTERIAL BLOOD GAS PO2 98 mm/Hg (80-100); ARTERIAL BLOOD GAS TCO2 31.7 mmol/L (22-28)
[2017-03-31] MEDS: Albuterol-Ipratrop 3 mg / 0.5 (3 ml) UD INH SCH ×5 (00:27→15:34)
[2017-03-31] MEDS: oxyCODONE 10 mg Immediate Release Tab PO PRN ×2 (05:33→15:21)
[2017-03-31 08:21] VITALS: BP 122/75; PULSE 77; RESP 20; TEMP 98.3; O2SAT 95
[2017-03-31] MEDS ORDERED: methylPREDNISolone Depo 80 mg/ml Inj IM ONE (08:47)
[2017-03-31] MEDS: Insulin Lispro (humaLOG) 100 Units/ml Inj SC SCH ×2 (08:51→12:47)
[2017-03-31] MEDS: Pantoprazole 40 mg EC Tab PO SCH (08:54)
[2017-03-31] MEDS: Promethazine DM 12.5 mg-30 mg/10 ml Syrup PO PRN (10:29)
--- NOTE | 2017-03-31 11:34 | PN ---
DATE: 03/31/2017 SUBJECTIVE: The patient is seen and examined. Interim events noted. The patient remains in regular medical floor. She still complains of occasional coughing. Her shortness of breath improved. The patient is able to ambulate. No chest pain. PHYSICAL EXAMINATION: GENERAL: The patient is in no acute distress. VITAL SIGNS: Stable. HEART: S1 and S2 normal and regular. LUNGS: The patient still has occasional rhonchi, but is much improved and air exchange is also improved. ABDOMEN: Soft and nontender. No organomegaly. No fluid. Bowel sounds are present and normal. EXTREMITIES: No edema and no calf swelling. No tenderness. No acute ischemia. CENTRAL NERVOUS SYSTEM: Exam is essentially unchanged. DIAGNOSTIC DATA: Available diagnostic data improved. ASSESSMENT AND PLAN: Exacerbation of asthma is resolved and still has occasional rhonchi, but the patient is medically stable and to discharge the patient home steroid preparation injection and steroid. The patient will be followed up in the office within a week. Discharged plan explained to the patient. Plan as ordered. Yovani Garrison MD
--- NOTE | 2017-03-31 13:33 | CP.PCM.PCO ---
Assessment/Plan - Assessment/Plan Assessment (Free Text): Pt stable, seen and cleared for d/c home by Dr. Garrison. Pt ambulating without distress. Rx e-prescribed for duonebs and medrol dose pack. Pt to resume home meds and f/u with PMD in 1 week
[2017-03-31] MEDS: Morphine 30 mg SR Tab PO PRN (13:37)
== END 2017-03-31 16:30 | disposition home or self-care (01) | DRG 96 ==
LOC: H.ER 09:27 → H.ERHOLD 12:22 → H.MEDSURG1 16:42 → OBSVTOIN 03-25 12:24 → H.MEDSURG1 03-27 18:25
PROVIDERS: ADMIT Internal Medicine; ATTEND Internal Medicine
PROC: 3E0F73Z Introduction of Anti-inflammatory into Respiratory Tract, Via Natural or Artificial Opening (ICD-10-PCS; principal; 2017-03-25)
DX: J45.41 Moderate persistent asthma with (acute) exacerbation (principal); J44.9 Chronic obstructive pulmonary disease, unspecified; K50.90 Crohn's disease, unspecified, without complications; D63.8 Anemia in other chronic diseases classified elsewhere; G89.29 Other chronic pain; M54.5 Low back pain; F41.9 Anxiety disorder, unspecified; Z86.711 Personal history of pulmonary embolism; Z88.0 Allergy status to penicillin

== ENCOUNTER 2017-11-27 22:15 | Emergency (ER) | payer MEDICAID ==
[2017-11-27 22:15] VITALS: BMI 30.4
[2017-11-27 22:21] VITALS: TEMP 97.9
--- NOTE | 2017-11-27 23:08 | ED PDOC ---
HPI: SOB/CHF/COPD Time Seen by Provider: 11/27/17 22:28 Chief Complaint (Nursing): Shortness Of Breath Chief Complaint (Provider): Shortness Of Breath History Per: Patient History/Exam Limitations: no limitations Onset/Duration Of Symptoms: Days (x1) Current Symptoms Are (Timing): Still Present Additional Complaint(s): 47 year old female arrives to ED for an evaluation of shortness of breath associated with chest tightness, non-productive cough, and runny nose ongoing for 1 day. She denies any fever, chills, or leg swelling bilaterally. Patient was seen by her PMD 2 days ago and took Nebulizer at home with no relief. Of note, she additionally reports back pain and left leg numbness but both are chronic conditions. PMD: Dr. Yovani Garrison Past Medical History Reviewed: Historical Data, Nursing Documentation, Vital Signs Vital Signs: Last Vital Signs Temp 97.9 F 11/27/17 22:21 Pulse 98 H 11/27/17 22:21 Resp 16 11/27/17 22:21 BP 110/76 11/27/17 22:21 Pulse Ox 97 11/27/17 22:21 - Medical History PMH: Anemia, Anxiety, Asthma, Back Problems, Bronchitis, COPD, Crohn's Disease, Fractures, Hypercholesterolemia, Migraine, Osteoporosis, Pulmonary Embolism, Chronic Pain (Herniated disks and pinched nerves ) Denies: Diabetes, Hepatitis, HIV, HTN, Chronic Kidney Disease, Seizures, Sexually Transmitted Disease - Surgical History Surgical History: Cholecystectomy (2009), (1x) - Family History Family History: States: Unknown Family Hx - Home Medications Home Medications: Ambulatory Orders Medication Instructions Recorded RX: Dicyclomine [Bentyl] 10 mg PO Q8H 10/21/15 RX: Hydrocodone/Acetaminophen 1 tab PO QID PRN 02/08/17 [[place] 10-325 Tablet] RX: Albuterol HFA [Ventolin HFA 90 2 puff IH Q6H PRN #1 inhaler 02/11/17 mcg/actuation (8 g)] RX: Apixaban [Eliquis] 5 mg PO Q12H #60 tab 02/11/17 RX: Pantoprazole [Protonix EC Tab] 40 mg PO DAILY #30 ect 02/11/17 RX: Atorvastatin [Lipitor] 20 mg PO HS 03/24/17 RX: Docusate [Colace] 100 mg PO TID PRN 03/24/17 RX: Doxepin [Sinequan] 10 mg PO HS 03/24/17 RX: Escitalopram [Lexapro] 10 mg PO HS 03/24/17 RX: Ferrous Sulfate [Feosol] 325 mg PO DAILY 03/24/17 RX: Gabapentin [Neurontin] 600 mg PO Q8H 03/24/17 RX: Montelukast [Singulair] 10 mg PO HS 03/24/17 RX: Morphine Sulfate [Morphine 30 mg PO Q12H 03/24/17 Sulfate ER] RX: Nabumetone [Relafen] 750 mg PO Q12H 03/24/17 RX: Ondansetron HCl [Zofran] 4 mg PO Q8H PRN 03/24/17 RX: SulfaSALAzine [Azulfidine] 500 mg PO Q6H 03/24/17 RX: Sumatriptan Succinate [Imitrex] 50 mg PO DAILY PRN 03/24/17 RX: clonazePAM [Klonopin] 1 mg PO Q6H 03/24/17 Methylprednisolone [Medrol Dose 4 mg PO DAILY #21 mg 03/31/17 Pack (21 tabs)] Promethazine DM [Phenergan DM 10 ml PO QID PRN #1 dose 03/31/17 Syrup] RX: Albuterol/Ipratropium [Duoneb 3 ml INH RQ4 #30 neb 03/31/17 3 mg/0.5 mg (3 ml) UD] Azithromycin [Zithromax] 250 mg PO QAM #1 pkg 11/28/17 Methylprednisolone [Medrol Dosepak] 4 mg PO ASDIR #1 pkg 11/28/17 RX: Promethazine DM [Phenergan DM 10 ml PO Q6 PRN #8 oz 11/28/17 Syrup] - Allergies Allergies/Adverse Reactions: Allergies Allergy/AdvReac Type Severity Reaction Status Date / Time amoxicillin Allergy RASH Verified 05/07/16 13:15 amoxicillin trihydrate Allergy RASH Verified 03/24/17 09:39 [From Augmentin] potassium clavulanate Allergy RASH Verified 05/07/16 13:15 [From Augmentin] Review of Systems ROS Statement: Except As Marked, All Systems Reviewed And Found Negative Constitutional: Negative for: Fever, Chills ENT: Positive for: Nose Discharge Cardiovascular: Positive for: Chest Pain (tightness) Respiratory: Positive for: Cough (nonproductive), Shortness of Breath Musculoskeletal: Positive for: Back Pain (chronic). Negative for: Other (leg swelling) Neurological: Positive for: Numbness (left leg: chronic) Physical Exam - Reviewed Nursing Documentation Reviewed: Yes Vital Signs Reviewed: Yes - Physical Exam Appears: Positive for: No Acute Distress (tired appearance) Head Exam: Positive for: ATRAUMATIC, NORMOCEPHALIC Skin: Positive for: Warm, Dry Eye Exam: Positive for: EOMI, PERRL Neck: Positive for: Painless ROM, Supple Cardiovascular/Chest: Positive for: Regular Rate, Rhythm. Negative for: Murmur Respiratory: Positive for: Normal Breath Sounds. Negative for: Wheezing (audible), Respiratory Distress Gastrointestinal/Abdominal: Positive for: Soft. Negative for: Tenderness Extremity: Positive for: Normal ROM. Negative for: Pedal Edema, Deformity Lymphatic: Negative for: Adenopathy Neurologic/Psych: Positive for: Alert. Negative for: Motor/Sensory Deficits - Laboratory Results Result Diagrams: 11/27/17 21:15 11/27/17 23:35 - ECG O2 Sat by Pulse Oximetry: 97 (RA) Pulse Ox Interpretation: Normal Medical Decision Making Medical Decision Making: Initial Impression: Asthma Exacerbation Differential diagnosis includes but not limited to: pneumonia; bronchitis; CHF Initial Plan: * EKG * Labs * CXR * Duoneb 9ml INH * Solu-Medrol 125mg IVP 12am Endorsed to Dr Khan pending ER workup reassessment and final ER disp osition Scribe Attestation: Documented by Kate Paige, acting as a scribe for Soledad Guthrie MD. Provider Scribe Attestation: All medical record entries made by the Scribe were at my direction and personally dictated by me. I have reviewed the chart and agree that the record accurately reflects my personal performance of the history, physical exam, medical decision making, and the department course for this patient. I have also personally directed, reviewed, and agree with the discharge instructions and disposition. Disposition - Clinical Impression Clinical Impression: AB (asthmatic bronchitis) Counseled Patient/Family Regarding: Studies Performed, Diagnosis - Disposition Disposition: Transfer of Care Disposition Time: 00:00 Condition: STABLE Prescriptions: Azithromycin [Zithromax] 250 mg PO QAM #1 pkg Methylprednisolone [Medrol Dosepak] 4 mg PO ASDIR #1 pkg RX: Promethazine DM [Phenergan DM Syrup] 10 ml PO Q6 PRN #8 oz PRN Reason: Cough Forms: [facility] (Polish)
[2017-11-27] MEDS: Albuterol-Ipratrop 3 mg / 0.5 (3 ml) UD INH STA ×3 (23:20→23:59)
[2017-11-27 23:47] LABS: BASO % 0.2 % (0.0-2.0); EOS # 0.1 K/uL (0.0-0.7); EOS % 1.7 % (0.0-4.0); HEMOGLOBIN 12.5 g/dL (12.0-16.0); LYMPH # 1.9 K/uL (1.0-4.3); LYMPH % 30.4 % (20.0-40.0); MEAN CELL VOLUME 91.2 fl (81.0-99.0); MEAN CORPUSCULAR HEMOGLOBIN 29.6 pg (27.0-31.0); MEAN CORPUSCULAR HGB CONC 32.5 g/dL (33.0-37.0); MEAN PLATELET VOLUME 10.3 fl (7.2-11.7); MONO # 0.5 K/uL (0.0-0.8); MONO % 8.3 % (0.0-10.0); NEUT # 3.7 K/uL (1.8-7.0); NEUT % 59.4 % (50.0-75.0); RBC 4.22 Mil/uL (3.80-5.20); RED CELL DISTRIBUTION WIDTH 15.1 % (11.5-14.5); WHITE BLOOD COUNT 6.2 K/uL (4.8-10.8)
[2017-11-27 23:51] LABS: PHENCYCLIDINE, UR NEGATIVE (NEGATIVE)
[2017-11-27 23:58] LABS: BARBITURATES, UR NEGATIVE (NEGATIVE); BENZODIAZEPINES, UR POSITIVE (NEGATIVE); OPIATES, UR POSITIVE (NEGATIVE)
[2017-11-28 00:10] LABS: ALBUMIN 3.7 g/dL (3.5-5.0); ALT/SGPT 31 U/L (9-52); AST/SGOT 29 U/L (14-36); BLOOD UREA NITROGEN 10 mg/dl (7-17); CALCIUM 9.1 mg/dL (8.4-10.2); GFR NON-AFRICAN AMERICAN > 60
[2017-11-28 00:21] LABS: B-TYPE NATRIURETIC PEPTIDE 49.5 pg/ml (0-450)
[2017-11-28] MEDS ORDERED: Sodium Chloride 0.9% 50 ML IV ONE (00:56)
[2017-11-28] MEDS ORDERED: Iodixanol 320 MG/ML 100 ML BOTTLE IV ONE (00:56)
--- NOTE | 2017-11-28 02:20 | ED PDOC ---
- Laboratory Results Result Diagrams: 11/27/17 21:15 11/27/17 23:35 - ECG O2 Sat by Pulse Oximetry: 97 (RA) Medical Decision Making Medical Decision Making: Time: 00:00 --Patient is endorsed to provider by Dr. Guthrie pending lab results and re- evaluation. CTA chest additionally ordered to rule out PE. Time: 215 --CTA chest FINDINGS: Bilateral patchy groundglass densities in the lungs. Normal enhancement of the main pulmonary artery and right and left pulmonary arteries. Normal enhancement of the bilateral peripheral pulmonary arteries. There is no demonstrated pulmonary embolism. Normal thoracic aorta and visualized great vessels. There is no demonstrated aortic dissection. Normal heart and pericardium. Normal mediastinum. Normal hilar regions. Normal visualized trachea and bronchi. The lungs are well expanded. Normal pulmonary parenchyma. Normal pleura. Normal chest wall structures. Normal osseous structures. Normal visualized upper abdomen. IMPRESSION: No demonstrated pulmonary embolism or arterial dissection. Bilateral patchy groundglass densities in the lungs. This is more prominent in the upper lobes. Possibly developing multifocal broncho-pneumonia. Time: 220 --Upon provider reevaluation, patient is medically stable, reports improvement in symptoms, and requires no further treatment in the ED at this time. Patient will be discharged home with Rx for Zithromax and Medrol DosePak. Counseling was provided and all questions were answered regarding diagnosis. There is agreement to discharge plan. Return if symptoms persist or worsen. Clinical Impression: Asthmatic Bronchitis Scribe Attestation: Documented by Kate Paige, acting as a scribe for Emory Khan MD. Provider Scribe Attestation: All medical record entries made by the Scribe were at my direction and personally dictated by me. I have reviewed the chart and agree that the record accurately reflects my personal performance of the history, physical exam, medical decision making, and the department course for this patient. I have also personally directed, reviewed, and agree with the discharge instructions and disposition. Disposition Counseled Patient/Family Regarding: Studies Performed, Diagnosis, Need For Followup, Rx Given - Clinical Impression Clinical Impression: AB (asthmatic bronchitis) - POA Present On Arrival: None - Disposition Disposition: Routine/Home Disposition Time: 02:21 Condition: STABLE Prescriptions: Azithromycin [Zithromax] 250 mg PO QAM #1 pkg Methylprednisolone [Medrol Dosepak] 4 mg PO ASDIR #1 pkg Instructions: Asthma in Adults Forms: [facility] (Czech)
[2017-11-28 02:42] VITALS: BP 111/55; PULSE 77; RESP 22
--- NOTE | 2017-11-28 10:46 | RAD ---
Date of service: 11/27/2017 HISTORY: chest pain COMPARISON: Comparison chest made to 14 18 TECHNIQUE: Chest PA and lateral FINDINGS: LUNGS: Mild left basilar atelectasis and or scarring. Minimal atelectasis or scarring or right CP angle region. PLEURA: No significant pleural effusion identified. No pneumothorax apparent. CARDIOVASCULAR: No atherosclerotic calcification present Normal. OSSEOUS STRUCTURES: Minor multilevel degenerative spondylosis of the thoracic spine VISUALIZED UPPER ABDOMEN: Cholecystectomy clips right upper quadrant of the abdomen OTHER FINDINGS: None. IMPRESSION: Mild left basilar atelectasis and or scarring. Minimal atelectasis or scarring or right CP angle region. .
--- NOTE | 2017-11-28 12:25 | CARD ---
APPROVED REPORT Date of service: 11/27/2017 EKG Measurement Heart [id number] <Conclusion> Normal sinus rhythm Normal ECG
--- NOTE | 2017-11-28 14:24 | CT ---
Date of service: 11/28/2017 PROCEDURE: CT Chest with contrast (Pulmonary Angiogram) HISTORY: Chest pain. Rule out PE. COMPARISON: Comparison made with prior CTA chest dated 02/08/2017. TECHNIQUE: Axial computed tomography images were obtained of the chest in the pulmonary arterial phase of enhancement. Coronal and sagittal reformatted images were created and reviewed. Intravenous contrast dose: Radiation dose: Total exam DLP = 371.41 mGy-cm. This CT exam was performed using one or more of the following dose reduction techniques: Automated exposure control, adjustment of the mA and/or kV according to patient size, and/or use of iterative reconstruction technique. FINDINGS: PULMONARY ARTERIES: Visualized pulmonary trunk, right and left main, lobar, segmental and proximal subsegmental branches of the pulmonary arteries are well opacified with no definitive filling defects seen to suggest acute central pulmonary embolus. Pulmonary trunk measures approximately 2.05 cm. AORTA: No acute findings. No thoracic aortic aneurysm. Minimal aortic atherosclerotic calcification/moral plaque. Ascending thoracic aorta measures approximately 2.2 cm and descending thoracic aorta measures approximate 1.7 7 the LUNGS: There are scattered localized ground-glass opacity seen in the upper left upper and both lower lobes.. Additionally, there is some minor chronic appearing linear atelectasis and/or scarring in both lung bases including the lingular and middle lobe regions. PLEURAL SPACES: Unremarkable. No effusion or pneumothorax. HEART: Unremarkable. No cardiomegaly. No significant pericardial effusion. LYMPH NODES: No significant mediastinal or hilar lymphadenopathy. Trachea is midline and patent. No obvious endoluminal lesions within the trachea or mainstem bronchi. The the the. There is a small hiatal hernia. Minimal wall thickening of the distal esophagus. BONES, CHEST WALL: Minor multilevel degenerative spondylosis of the thoracic and upper lumbar spine.. No fracture or destructive lesion OTHER FINDINGS: Cholecystectomy clips again noted IMPRESSION: No evidence of acute central pulmonary embolus. There are scattered appearing somewhat localized ground-glass opacities seen in the left upper as well as both lower lobes. Minor linear atelectasis/scarring both lung bases including the lingular and middle lobe regions.
[2017-11-28 21:31] VITALS: O2SAT 97
== END 2017-11-28 02:50 | disposition home or self-care (01) ==
LOC: H.ER 22:15
DX: R09.89 Other specified symptoms and signs involving the circulatory and respiratory systems (principal); J45.901 Unspecified asthma with (acute) exacerbation; K50.90 Crohn's disease, unspecified, without complications; G89.29 Other chronic pain; J44.9 Chronic obstructive pulmonary disease, unspecified; M81.0 Age-related osteoporosis without current pathological fracture; Z86.711 Personal history of pulmonary embolism; Z88.0 Allergy status to penicillin
CPT/HCPCS: 71046; 71275; 80053; 80324; 80345; 80346; 80349; 80353; 80358; 80361; 81025; 83880; 83992; 84484; 85025; 85378; 93005; 94150; 94640; 96374; 99285; J2930; Q9967

== ENCOUNTER 2018-02-23 17:16 | Observation (INO) | payer MEDICAID ==
[2018-02-23 17:17] VITALS: BMI 30.4
--- NOTE | 2018-02-23 17:52 | ED PDOC ---
HPI: Headache Time Seen by Provider: 02/23/18 17:34 Chief Complaint (Nursing): Chest Pain Chief Complaint (Provider): Left sided headache History Per: Patient History/Exam Limitations: no limitations Onset/Duration Of Symptoms: Days (x2) Current Symptoms Are (Timing): Still Present Additional Complaint(s): 47 year old female, with a past medical history of PE and subdural hematoma, presents to the ED complaining of left sided headache after hitting her head on the bed post yesterday. She denies LOC. Patient reports she has had dizziness, visual disturbances, nausea, and generalized weakness, since hitting her head. Patient took Imitrex for the headache but developed chest pain. She denies shortness of breath. Patient takes Eliquis due to history of PE. PMD: Yovani Liriano Past Medical History Reviewed: Historical Data, Nursing Documentation, Vital Signs Vital Signs: Last Vital Signs Temp 98.8 F 02/23/18 17:18 Pulse 79 02/23/18 17:18 Resp 16 02/23/18 17:18 BP 150/72 02/23/18 17:18 Pulse Ox 99 02/23/18 17:18 - Medical History PMH: Anemia, Anxiety, Asthma, Back Problems, Bronchitis, COPD, Crohn's Disease, Fractures, Hypercholesterolemia, Migraine, Osteoporosis, Pulmonary Embolism, Chronic Pain (Herniated disks and pinched nerves ) Denies: Diabetes, Hepatitis, HIV, HTN, Chronic Kidney Disease, Seizures, Sexually Transmitted Disease Other PMH: subdural hematoma - Surgical History Surgical History: Cholecystectomy (2009), (1x) - Family History Family History: States: Unknown Family Hx - Home Medications Home Medications: Ambulatory Orders Medication Instructions Recorded Dicyclomine [Bentyl] 10 mg PO Q8H 10/21/15 Hydrocodone/Acetaminophen [[place] 1 tab PO QID PRN 02/08/17 10-325 Tablet] Albuterol HFA [Ventolin HFA 90 2 puff IH Q6H PRN #1 inhaler 02/11/17 mcg/actuation (8 g)] Apixaban [Eliquis] 5 mg PO Q12H #60 tab 02/11/17 Pantoprazole [Protonix EC Tab] 40 mg PO DAILY #30 ect 02/11/17 Atorvastatin [Lipitor] 20 mg PO HS 03/24/17 Docusate [Colace] 100 mg PO TID PRN 03/24/17 Doxepin [Sinequan] 10 mg PO HS 03/24/17 Escitalopram [Lexapro] 10 mg PO HS 03/24/17 Ferrous Sulfate [Feosol] 325 mg PO DAILY 03/24/17 Gabapentin [Neurontin] 600 mg PO Q8H 03/24/17 Montelukast [Singulair] 10 mg PO HS 03/24/17 Morphine Sulfate [Morphine Sulfate 30 mg PO Q12H 03/24/17 ER] Nabumetone [Relafen] 750 mg PO Q12H 03/24/17 Ondansetron HCl [Zofran] 4 mg PO Q8H PRN 03/24/17 SulfaSALAzine [Azulfidine] 500 mg PO Q6H 03/24/17 Sumatriptan Succinate [Imitrex] 50 mg PO DAILY PRN 03/24/17 clonazePAM [Klonopin] 1 mg PO Q6H 03/24/17 Albuterol/Ipratropium [Duoneb 3 3 ml INH RQ4 #30 neb 03/31/17 mg/0.5 mg (3 ml) UD] Methylprednisolone [Medrol Dose 4 mg PO DAILY #21 mg 03/31/17 Pack (21 tabs)] Promethazine DM [Phenergan DM 10 ml PO QID PRN #1 dose 03/31/17 Syrup] Azithromycin [Zithromax] 250 mg PO QAM #1 pkg 11/28/17 Methylprednisolone [Medrol Dosepak] 4 mg PO ASDIR #1 pkg 11/28/17 Promethazine DM [Phenergan DM 10 ml PO Q6 PRN #8 oz 11/28/17 Syrup] - Allergies Allergies/Adverse Reactions: Allergies Allergy/AdvReac Type Severity Reaction Status Date / Time amoxicillin Allergy RASH Verified 02/23/18 17:25 amoxicillin trihydrate Allergy RASH Verified 02/23/18 17:25 [From Augmentin] potassium clavulanate Allergy RASH Verified 02/23/18 17:25 [From Augmentin] Review of Systems ROS Statement: Except As Marked, All Systems Reviewed And Found Negative Constitutional: Positive for: Weakness (Generalized) Eyes: Positive for: Vision Change Cardiovascular: Positive for: Chest Pain Respiratory: Negative for: Shortness of Breath Gastrointestinal: Positive for: Nausea Neurological: Positive for: Headache, Dizziness. Negative for: Other (LOC) Physical Exam - Reviewed Nursing Documentation Reviewed: Yes Vital Signs Reviewed: Yes - Physical Exam Appears: Positive for: Non-toxic, No Acute Distress Head Exam: Positive for: ATRAUMATIC, NORMOCEPHALIC Skin: Positive for: Normal Color, Warm, Dry Eye Exam: Positive for: Normal appearance Neck: Positive for: Normal, Painless ROM Cardiovascular/Chest: Positive for: Regular Rate, Rhythm Respiratory: Positive for: Normal Breath Sounds. Negative for: Wheezing, Respiratory Distress Gastrointestinal/Abdominal: Positive for: Normal Exam, Soft. Negative for: Tenderness Extremity: Positive for: Normal ROM Neurologic/Psych: Positive for: Alert, drop hammer setter up II-XII (intact), Oriented. Negative for: Motor/Sensory Deficits - ECG ECG Rhythm: Positive for: Sinus Rhythm. Negative for: ST/T Changes Rate: 80 O2 Sat by Pulse Oximetry: 99 (RA) Pulse Ox Interpretation: Normal Medical Decision Making Medical Decision Making: Initial Impression: Head injury, concern for recurrent subdural hematoma given patient is on Eliquis Initial Plan: Will order CT of head. ECG done in triage which was normal sinus rhythm and no ST changes with a rate of 80. ------ Scribe Attestation: Documented by Camilo Levi acting as a scribe for Jaret Ambrocio MD. Provider Scribe Attestation: All medical record entries made by the Scribe were at my direction and personally dictated by me. I have reviewed the chart and agree that the record accurately reflects my personal performance of the history, physical exam, medical decision making, and the department course for this patient. I have also personally directed, reviewed, and agree with the discharge instructions and disposition. Disposition - Clinical Impression Clinical Impression: Head injury, Concussion - Patient ED Disposition Is Patient to be Admitted: Yes - Disposition Disposition Time: 18:45 Condition: FAIR Forms: [facility] ([place]uneian) - Pt Status Changed To: Hospital Disposition Of: Observation - POA Present On Arrival: None
--- NOTE | 2018-02-23 18:56 | CT ---
Date of service: 02/23/2018 PROCEDURE: CT HEAD WITHOUT CONTRAST. HISTORY: r/o bleed COMPARISON: Comparison is made with 06/20/2016 TECHNIQUE: Axial computed tomography images were obtained through the head/brain without intravenous contrast. Radiation dose: Total exam DLP = 802.92 mGy-cm. This CT exam was performed using one or more of the following dose reduction techniques: Automated exposure control, adjustment of the mA and/or kV according to patient size, and/or use of iterative reconstruction technique. FINDINGS: HEMORRHAGE: No intracranial hemorrhage. BRAIN: No mass effect or edema. Loss is noted. VENTRICLES: Unremarkable. No hydrocephalus. CALVARIUM: Unremarkable. PARANASAL SINUSES: Unremarkable as visualized. No significant inflammatory changes. MASTOID AIR CELLS: Unremarkable as visualized. No inflammatory changes. OTHER FINDINGS: None. IMPRESSION: No evidence of acute intracranial hemorrhage mass effect or midline shift. Mild volume loss noted.
[2018-02-23 19:07] LABS: BASO % 0.4 % (0.0-2.0); EOS # 0.1 K/uL (0.0-0.7); HEMOGLOBIN 11.3 g/dL (12.0-16.0); LYMPH # 2.8 K/uL (1.0-4.3); LYMPH % 41.8 % (20.0-40.0); MEAN CELL VOLUME 89.2 fl (81.0-99.0); MEAN CORPUSCULAR HEMOGLOBIN 28.8 pg (27.0-31.0); MEAN CORPUSCULAR HGB CONC 32.3 g/dL (33.0-37.0); MEAN PLATELET VOLUME 9.5 fl (7.2-11.7); MONO # 0.6 K/uL (0.0-0.8); MONO % 9.1 % (0.0-10.0); NEUT # 3.2 K/uL (1.8-7.0); NEUT % 47.7 % (50.0-75.0); RBC 3.92 Mil/uL (3.80-5.20); RED CELL DISTRIBUTION WIDTH 16.8 % (11.5-14.5); WHITE BLOOD COUNT 6.8 K/uL (4.8-10.8)
[2018-02-23 19:20] LABS: ALB/GLOB RATIO 1.2 (1.0-2.1); ALBUMIN 3.9 g/dL (3.5-5.0); ALT/SGPT 22 U/L (9-52); AST/SGOT 22 U/L (14-36); BLOOD UREA NITROGEN 12 mg/dl (7-17); CALCIUM 9.3 mg/dL (8.4-10.2); GFR NON-AFRICAN AMERICAN > 60
[2018-02-23] MEDS: Dextrose 5%/Lactated Ringer's 1,000 ML IV SCH (23:26)
[2018-02-24] MEDS ORDERED: Pneumococcal 23-Valent Vaccine IM ONE (00:18)
[2018-02-24] MEDS ORDERED: Influenza Vaccine (5 YR UP)/PF 60 MCG/0.5 ML SYR IM ONE (00:22)
[2018-02-24] MEDS ORDERED: Potassium Chloride 20 mEq 100 ML IVPB ONE (08:23)
[2018-02-24] MEDS ORDERED: Potassium Chloride 20 mEq ER Tab PO ONE (09:08)
--- NOTE | 2018-02-24 09:15 | CP.PCM.HP ---
History of Present Illness - History of Present Illness History of Present Illness: HPI: 46 YO female with PMHx of moderate persistent asthma, Chron's disease, pulmonary embolism (11/2015), chronic lumbar pain secondary to multiple disc herniations, migraine headaches, anxiety, subdural hematoma presented to the ED for L sided headaches. Headache was located on the L side, no improvement with imatrex. Of note, pt states that two days ago she hit her head on the bed post which she contributes to the severecity of the headache. Endorsing dizziness, visual disturbances, nausea, and generalized weakness, since hitting her head. PMD: Dr. Garrison PMHx: moderate persistent asthma, Chron's disease, pulmonary embolism (11/2015), chronic lumbar pain secondary to multiple disc herniations, migraine headaches, anxiety, subdural hematoma SurgHX: cholecystectomy FHx: denies SHx: denies ETOH, smoking and illicit drug use Allergies: amoxicillin rash Present on Admission - Present on Admission Any Indicators Present on Admission: No Review of Systems - Constitutional Constitutional: absent: Chills, Fever - EENT Eyes: absent: Blurred Vision - Cardiovascular Cardiovascular: absent: Chest Pain, Dyspnea, Palpitations - Respiratory Respiratory: absent: Cough, Dyspnea - Gastrointestinal Gastrointestinal: Nausea. absent: Abdominal Pain, Vomiting - Neurological Neurological: Dizziness, Headaches Past Patient History - Infectious Disease Hx of Infectious Diseases: None - Past Medical History & Family History Past Medical History?: Yes - Past Social History Smoking Status: Never Smoked Alcohol: None Drugs: Denies - CARDIAC Hx Cardiac Disorders: Yes (hypotension, hypercholesterolemia, colitis, IBD, crohns) - PULMONARY Hx Respiratory Disorders: Yes (COPD, asthma, PE) - NEUROLOGICAL Hx Neurological Disorder: Yes (migraine) - HEENT Hx HEENT Problems: Yes - RENAL Hx Chronic Kidney Disease: No - ENDOCRINE/METABOLIC Hx Endocrine Disorders: Yes (anemia) - HEMATOLOGICAL/ONCOLOGICAL Hx Blood Disorders: No - INTEGUMENTARY Hx Dermatological Problems: No - MUSCULOSKELETAL/RHEUMATOLOGICAL Hx Musculoskeletal Disorders: Yes (osteoarthritis, osteoporosis, herniated disk, ORIF, back problems) Hx Falls: Yes - GASTROINTESTINAL Hx Gastrointestinal Disorders: Yes Hx Crohn's Disease: Yes - GENITOURINARY/GYNECOLOGICAL Hx Genitourinary Disorders: No - PSYCHIATRIC Hx Psychophysiologic Disorder: Yes (anxiety) - SURGICAL HISTORY Hx Surgeries: Yes Hx Cholecystectomy: Yes (2009) - ANESTHESIA Hx Anesthesia: Yes Hx Anesthesia Reactions: No Hx Malignant Hyperthermia: No Meds Allergies/Adverse Reactions: Allergies Allergy/AdvReac Type Severity Reaction Status Date / Time amoxicillin Allergy RASH Verified 02/23/18 17:25 amoxicillin trihydrate Allergy RASH Verified 02/23/18 17:25 [From Augmentin] potassium clavulanate Allergy RASH Verified 02/23/18 17:25 [From Augmentin] Physical Exam - Constitutional Appears: No Acute Distress - Head Exam Head Exam: ATRAUMATIC, NORMAL INSPECTION, NORMOCEPHALIC - Eye Exam Eye Exam: EOMI, Normal appearance - ENT Exam ENT Exam: Mucous Membranes Moist - Respiratory Exam Respiratory Exam: Clear to Auscultation Bilateral, NORMAL BREATHING PATTERN. absent: Wheezes - Cardiovascular Exam Cardiovascular Exam: REGULAR RHYTHM, +S1, +S2 - GI/Abdominal Exam GI & Abdominal Exam: Normal Bowel Sounds, Soft. absent: Tenderness - Extremities Exam Extremities exam: Positive for: normal inspection. Negative for: pedal edema - Neurological Exam Neurological exam: Alert, CN II-XII Intact, Oriented x3 Results - Vital Signs Recent Vital Signs: Last Vital Signs Temp 97.6 F 02/24/18 08:03 Pulse 63 02/24/18 08:03 Resp 20 02/24/18 08:03 BP 110/72 02/24/18 08:03 Pulse Ox 99 02/24/18 08:03 - Labs Result Diagrams: 02/23/18 19:00 02/23/18 19:00 Labs: Laboratory Results - last 24 hr 02/23/18 02/23/18 19:00 19:00 WBC 6.8 RBC 3.92 Hgb 11.3 L Hct 35.0 MCV 89.2 D MCH 28.8 MCHC 32.3 L RDW 16.8 H Plt Count 208 MPV 9.5 Neut % (Auto) 47.7 L Lymph % (Auto) 41.8 H [place] % (Auto) 9.1 Eos % (Auto) 1.0 Baso % (Auto) 0.4 Neut # (Auto) 3.2 Lymph # (Auto) 2.8 [place] # (Auto) 0.6 Eos # (Auto) 0.1 Baso # (Auto) 0.0 Sodium 140 Potassium 3.3 L Chloride 103 Carbon Dioxide 29 Anion Gap 11 BUN 12 Creatinine 0.7 Est GFR ( Amer) > 60 Est GFR (Non-Af Amer) > 60 Random Glucose 95 Calcium 9.3 Total Bilirubin 0.4 AST 22 ALT 22 Alkaline Phosphatase 62 Total Protein 7.2 Albumin 3.9 Globulin 3.3 Albumin/Globulin Ratio 1.2 Assessment & Plan (1) Concussion Status: Acute - Assessment and Plan (Free Text) Assessment: Assessment/Plan: 46 YO female with PMHx of moderate persistent asthma, Chron's disease, pulmonary embolism (11/2015), chronic lumbar pain secondary to multiple disc herniations, migraine headaches, anxiety, subdural hematoma is admitted for concussion. Concussion -neuro on board; follow up recs -diet as tolerated -fall precautions -CT head--no hemorrhage or acute intracranial changes -hold psychotropic meds, and migrane med for now -pain management Plan as ordered Plan discussed with Dr. Hopkins
[2018-02-24] MEDS: Dextrose 5%/Lactated Ringer's 1,000 ML IV SCH (10:52)
[2018-02-24] MEDS: Alum-Mag Hydrox-Simethicone Susp (30 mL) PO PRN ×3 (11:18→23:58)
[2018-02-24] MEDS ORDERED: Influenza Vaccine 60 mcg/0.5 mL SYR (4YR UP) IM ONE (12:15)
[2018-02-24 23:59] VITALS: RESP 18
[2018-02-25 06:09] LABS: BLOOD UREA NITROGEN 18 mg/dl (7-17); GFR NON-AFRICAN AMERICAN > 60
[2018-02-25] MEDS ORDERED: HYDROmorphone 0.5 mg/0.5 ml ISec IVP PRN (06:45)
[2018-02-25 08:01] VITALS: O2SAT 98
[2018-02-25] MEDS ORDERED: Influenza Vaccine (5 YR UP)/PF 60 MCG/0.5 ML SYR IM ONE (08:30)
[2018-02-25] MEDS ORDERED: Cholecalciferol 1,000 INTLU TAB PO SCH (09:00)
--- NOTE | 2018-02-25 10:18 | CP.PCM.DIS ---
Provider - Provider Date of Admission: 02/23/18 18:43 Attending physician: Jose Manuel Hopkins MD Consults: 02/23/18 21:59 Neurology Consult Routine Comment: Consulting Provider: Soto Kennedy Consulting Physician: Soto Kennedy Reason for Consult: Concussion Time Spent in preparation of Discharge (in minutes): 35 Diagnosis - Discharge Diagnosis (1) Concussion Status: Acute (2) Migraine headache Status: Acute (3) Head injury Status: Acute Hospital Course - Lab Results Lab Results: Most Recent Lab Values WBC 6.8 K/uL (4.8-10.8) 02/23/18 19:00 RBC 3.92 Mil/uL (3.80-5.20) 02/23/18 19:00 Hgb 11.3 g/dL (12.0-16.0) L 02/23/18 19:00 Hct 35.0 % (34.0-47.0) 02/23/18 19:00 MCV 89.2 fl (81.0-99.0) D 02/23/18 19:00 MCH 28.8 pg (27.0-31.0) 02/23/18 19:00 MCHC 32.3 g/dL (33.0-37.0) L 02/23/18 19:00 RDW 16.8 % (11.5-14.5) H 02/23/18 19:00 Plt Count 208 K/uL (130-400) 02/23/18 19:00 MPV 9.5 fl (7.2-11.7) 02/23/18 19:00 Neut % (Auto) 47.7 % (50.0-75.0) L 02/23/18 19:00 Lymph % (Auto) 41.8 % (20.0-40.0) H 02/23/18 19:00 [place] % (Auto) 9.1 % (0.0-10.0) 02/23/18 19:00 Eos % (Auto) 1.0 % (0.0-4.0) 02/23/18 19:00 Baso % (Auto) 0.4 % (0.0-2.0) 02/23/18 19:00 Neut # (Auto) 3.2 K/uL (1.8-7.0) 02/23/18 19:00 Lymph # (Auto) 2.8 K/uL (1.0-4.3) 02/23/18 19:00 [place] # (Auto) 0.6 K/uL (0.0-0.8) 02/23/18 19:00 Eos # (Auto) 0.1 K/uL (0.0-0.7) 02/23/18 19:00 Baso # (Auto) 0.0 K/uL (0.0-0.2) 02/23/18 19:00 Sodium 136 mmol/l (132-148) 02/25/18 04:30 Potassium 4.2 MMOL/L (3.6-5.0) 02/25/18 04:30 Chloride 99 mmol/L (98-107) 02/25/18 04:30 Carbon Dioxide 33 mmol/L (22-30) H 02/25/18 04:30 Anion Gap 8 (10-20) L 02/25/18 04:30 BUN 18 mg/dl (7-17) H 02/25/18 04:30 Creatinine 0.7 mg/dl (0.7-1.2) 02/25/18 04:30 Est GFR ( Amer) > 60 02/25/18 04:30 Est GFR (Non-Af Amer) > 60 02/25/18 04:30 Random Glucose 95 mg/dL (65-105) 02/25/18 04:30 Calcium 9.0 mg/dL (8.4-10.2) 02/25/18 04:30 Total Bilirubin 0.4 mg/dl (0.2-1.3) 02/23/18 19:00 AST 22 U/L (14-36) 02/23/18 19:00 ALT 22 U/L (9-52) 02/23/18 19:00 Alkaline Phosphatase 62 U/L (38-126) 02/23/18 19:00 Total Protein 7.2 G/DL (6.3-8.2) 02/23/18 19:00 Albumin 3.9 g/dL (3.5-5.0) 02/23/18 19:00 Globulin 3.3 gm/dL (2.2-3.9) 02/23/18 19:00 Albumin/Globulin Ratio 1.2 (1.0-2.1) 02/23/18 19:00 - Hospital Course Hospital Course: 46 YO female with PMHx of moderate persistent asthma, Chron's disease, pulmonary embolism (11/2015), chronic lumbar pain secondary to multiple disc herniations, migraine headaches, anxiety, subdural hematoma is admitted for concussion. CT head showed no acute intracranial pathology, pt was seen and evaluated by Neurology, cleared by neurology. Pt doing well this AM, continues to have pain in L side of the head, but improving and well controlled with pain meds. Pt is ambulating without any difficulties, tolerating PO. Will d/c patient home with follow up with PMD in 1 week. Discharge Exam - Head Exam Head Exam: ATRAUMATIC, NORMAL INSPECTION, NORMOCEPHALIC - Eye Exam Eye Exam: EOMI, Normal appearance Additional comments: L eye mild watery - ENT Exam ENT Exam: Mucous Membranes Moist - Respiratory Exam Respiratory Exam: Clear to PA & Lateral, NORMAL BREATHING PATTERN - Cardiovascular Exam Cardiovascular Exam: REGULAR RHYTHM, +S1, +S2 - GI/Abdominal Exam GI & Abdominal Exam: Normal Bowel Sounds, Soft. absent: Tenderness - Neurological Exam Neurological exam: Alert, CN II-XII Intact Discharge Plan - Discharge Medications Prescriptions: Aluminum Hydroxide/Magnesium [Maalox Plus 30 ml] 30 ml PO Q6 PRN 30 Days #30 udc PRN Reason: Indigestion / Heartburn Ibuprofen [Motrin Tab] 600 mg PO Q8 #60 tab Meclizine [Antivert] 12.5 mg PO BID #30 tab - Follow Up Plan Condition: FAIR Disposition: HOME/ ROUTINE Patient education suggested?: Yes Instructions: Concussion, Adult (DC), Migraine Headache (DC) Additional Instructions: please follow up with primary doctor in 1 week please follow up with pain management Follow up with Dr. Kennedy in the office within 2-3 weeks Referrals: Yovani Garrison MD [Family Provider] - Jose Manuel Hopkins MD [Staff Provider] - Soto Kennedy MD [Medical Doctor] -
[2018-02-25] MEDS ORDERED: Oxycodone/Acetaminophen 5/325 mg Tab PO ONE (11:14)
[2018-02-25 11:55] VITALS: BP 98/65; PULSE 75; TEMP 98.2
--- NOTE | 2018-02-25 11:55 | CP.PCM.PN ---
Subjective - Date & Time of Evaluation Date of Evaluation: 02/25/18 Time of Evaluation: 11:53 - Subjective Subjective: Neurology Follow-Up Note: Mrs. Dickerson was evaluated this morning. She is for d/c home today. She states that she still feels a little weak and dizzy. Note that pt has been receiving IV narcotics for management of her h/a 2/2 concussion. She denies at this time a h/a, visual changes, chets pain, sob, abd pain, n/v/d. Chart reviewed. Objective - Vital Signs/Intake and Output Vital Signs (last 24 hours): Temp Pulse Resp BP Pulse Ox 97.8 F 68 18 108/71 98 02/25/18 08:00 02/25/18 08:00 02/25/18 08:00 02/25/18 08:00 02/25/18 08:00 - Medications Medications: Current Medications Al Hydrox/Mg Hydrox/Simethicone (Maalox Plus 30 Ml) 30 ml PO Q6 PRN PRN Reason: Indigestion / Heartburn Last Admin: 02/24/18 23:58 Dose: 30 ml Atorvastatin Calcium (Lipitor) 20 mg PO HS FOR[facility]LY [facility], [facility]1983 Last Admin: 02/24/18 21:01 Dose: 20 mg Cholecalciferol (Vitamin D) 1,000 intlu PO DAILY [facility], [facility] Last Admin: 02/25/18 08:04 Dose: 1,000 intlu Clonazepam (Klonopin) 1 mg PO BID [facility], [facility] Last Admin: 02/25/18 08:03 Dose: 1 mg Ibuprofen (Motrin Tab) 600 mg PO Q8 [facility] Last Admin: 02/25/18 11:17 Dose: 600 mg Meclizine HCl (Antivert) 12.5 mg PO BID [facility] Last Admin: 02/25/18 11:30 Dose: Not Given Pantoprazole Sodium (Protonix Inj) 40 mg IVP DAILY [facility], [facility] Last Admin: 02/25/18 08:04 Dose: 40 mg - Labs Labs: 02/23/18 19:00 02/25/18 04:30 - Constitutional Appears: Well, Non-toxic, No Acute Distress - Head Exam Head Exam: ATRAUMATIC, NORMAL INSPECTION, NORMOCEPHALIC Additional comments: tenderness noted to right frontal area (site where pt hit head); no obvious hematoma - Eye Exam Eye Exam: EOMI, Normal appearance, PERRL Pupil Exam: NORMAL ACCOMODATION - ENT Exam ENT Exam: Mucous Membranes Moist - Neck Exam Neck Exam: Full ROM, Normal Inspection - Respiratory Exam Respiratory Exam: NORMAL BREATHING PATTERN - Cardiovascular Exam Cardiovascular Exam: REGULAR RHYTHM (on tele mx) - GI/Abdominal Exam GI & Abdominal Exam: Soft - Extremities Exam Extremities Exam: Full ROM. absent: Calf Tenderness, Pedal Edema - Back Exam Back Exam: Full ROM, NORMAL INSPECTION - Neurological Exam Neurological Exam: Alert, Awake, CN II-XII Intact, Normal Gait, Oriented x3, Reflexes Normal Neuro motor strength exam: Left Upper Extremity: 5, Right Upper Extremity: 5, Left Lower Extremity: 5, Right Lower Extremity: 5 Additional comments: speech clear, fluid strength and sensation intact b/l gait normal--observed ambulating independently in hallway - Psychiatric Exam Psychiatric exam: Normal Affect, Normal Mood - Skin Skin Exam: Normal Color Assessment and Plan (1) Concussion Assessment & Plan: Imaging reviewed. Mrs. Dickerson is neurologically stable and has no deficits. -Encourage to refrain from narcotic pain medications as this may increase dizziness, weakness in the pt. -Encourage rest and decrease stimulation for at least 2 weeks. -Follow up with Dr. Kennedy in the office within 2-3 weeks. Thank you for allowing us to participate in this pt's care. Reconsult prn. Discussed with Dr. Schwab Status: Acute
[2018-02-25] MEDS ORDERED: HYDROmorphone 0.5 mg/0.5 ml ISec IVP ONE (13:50)
[2018-02-25] MEDS ORDERED: Patient's Own Med (Valacyclovir [Valtrex] 1 GM) PO SCH (17:00)
== END 2018-02-25 15:45 | disposition home or self-care (01) ==
LOC: H.ER 17:16 → H.TEL 18:43 → H.ERHOLD 19:52 → H.TEL 21:08
PROVIDERS: ADMIT Family Medicine; ATTEND Family Medicine
DX: S06.0X0A Concussion without loss of consciousness, initial encounter (principal); J45.40 Moderate persistent asthma, uncomplicated; Z86.711 Personal history of pulmonary embolism; Z79.01 Long term (current) use of anticoagulants; M81.0 Age-related osteoporosis without current pathological fracture; E78.00 Pure hypercholesterolemia, unspecified; Z88.0 Allergy status to penicillin; Z23 Encounter for immunization; F41.9 Anxiety disorder, unspecified; J44.9 Chronic obstructive pulmonary disease, unspecified; K50.90 Crohn's disease, unspecified, without complications; G89.29 Other chronic pain; G43.909 Migraine, unspecified, not intractable, without status migrainosus; Y92.003 Bedroom of unspecified non-institutional (private) residence as the place of occurrence of the external cause; M51.26 Other intervertebral disc displacement, lumbar region; W22.03XA Walked into furniture, initial encounter; Z79.1 Long term (current) use of non-steroidal anti-inflammatories (NSAID)
CPT/HCPCS: 36415; 70450; 80053; 81025; 85025; 90471; 90674; 99285; G0008; J1170; J7120

== ENCOUNTER 2018-04-30 12:44 | Emergency (ER) | payer MEDICAID ==
[2018-04-30 12:44] VITALS: BMI 30.4
[2018-04-30 12:56] VITALS: BP 113/66; PULSE 69; RESP 16; TEMP 98.9; O2SAT 98
--- NOTE | 2018-04-30 13:23 | ED PDOC ---
Upper Extremity Pain/Injury Time Seen by Provider: 04/30/18 13:11 Chief Complaint (Nursing): Finger,Hand,&Wrist Chief Complaint (Provider): left thumb pain History Per: Patient History/Exam Limitations: no limitations Onset/Duration Of Symptoms: Days (x2 weeks) Current Symptoms Are (Timing): Still Present Additional Complaint(s): Barbara Dickerson is a 47 year old female, with a past medical history of chronic back pain and on morphine regularly for pain, who presents to the emergency department complaining of left thumb pain onset x2 weeks ago. Patient states she struck her hand against her friends while playing a game of Sm[employer] x2 weeks ago. Patient reports moderate pain to thumb and followed up with PMD. She had her thumb wrapped as a precaution but still has persistent pain to the area. Patient further states that a week ago, her son hyper-extended her thumb accidentally. Patient is right hand dominant and is requesting an X-Ray. She denies any other possible injuries, fever, chills or medical complaints. PMD: Yovani Garrison Past Medical History Reviewed: Historical Data, Nursing Documentation, Vital Signs Vital Signs: Last Vital Signs Temp 98.9 F 04/30/18 12:52 Pulse 69 04/30/18 12:52 Resp 16 04/30/18 12:52 BP 113/66 04/30/18 12:52 Pulse Ox 98 04/30/18 12:52 - Medical History PMH: Anemia, Anxiety, Asthma, Back Problems, Bronchitis, COPD, Crohn's Disease, Fractures, Hypercholesterolemia, Migraine, Osteoporosis, Pulmonary Embolism, Chronic Pain (Herniated disks and pinched nerves ) Denies: Diabetes, Hepatitis, HIV, HTN, Chronic Kidney Disease, Seizures, Sexually Transmitted Disease - Surgical History Surgical History: Cholecystectomy (2009), (1x) - Family History Family History: States: Unknown Family Hx - Home Medications Home Medications: Ambulatory Orders Medication Instructions Recorded Dicyclomine [Bentyl] 10 mg PO Q8H 10/21/15 Apixaban [Eliquis] 5 mg PO Q12H #60 tab 02/11/17 Atorvastatin [Lipitor] 20 mg PO HS 03/24/17 Escitalopram [Lexapro] 10 mg PO BID 03/24/17 Gabapentin [Neurontin] 600 mg PO Q8H 03/24/17 Morphine Sulfate [Morphine Sulfate 15 mg PO Q12H 03/24/17 ER] SulfaSALAzine [Azulfidine] 500 mg PO Q6H 03/24/17 Sumatriptan Succinate [Imitrex] 50 mg PO DAILY PRN 03/24/17 clonazePAM [Klonopin] 1 mg PO BID 03/24/17 Cholecalciferol [Vitamin D 1000 IU] 1,000 unit PO DAILY 02/23/18 oxyCODONE [oxyCODONE Immediate 15 mg PO QID 02/23/18 Release Tab] valACYclovir [Valtrex] 1 gm PO BID 02/23/18 Aluminum Hydroxide/Magnesium 30 ml PO Q6 PRN 30 Days #30 udc 02/25/18 [Maalox Plus 30 ml] Ibuprofen [Motrin Tab] 600 mg PO Q8 #60 tab 02/25/18 Meclizine [Antivert] 12.5 mg PO BID #30 tab 02/25/18 - Allergies Allergies/Adverse Reactions: Allergies Allergy/AdvReac Type Severity Reaction Status Date / Time amoxicillin Allergy RASH Verified 04/30/18 12:52 amoxicillin trihydrate Allergy RASH Verified 04/30/18 12:52 [From Augmentin] potassium clavulanate Allergy RASH Verified 04/30/18 12:52 [From Augmentin] Review of Systems ROS Statement: Except As Marked, All Systems Reviewed And Found Negative Constitutional: Negative for: Fever, Chills Musculoskeletal: Positive for: Hand Pain (left thumb pain) Physical Exam - Reviewed Nursing Documentation Reviewed: Yes Vital Signs Reviewed: Yes - Physical Exam Appears: Positive for: No Acute Distress Head Exam: Positive for: ATRAUMATIC, NORMAL INSPECTION, NORMOCEPHALIC Skin: Positive for: Normal Color, Warm, Dry Eye Exam: Positive for: Normal appearance, EOMI, PERRL Neck: Positive for: Normal, Painless ROM Extremity: Positive for: Normal ROM (of left thumb), Tenderness (tenderness along the ulnar collateral ligament and positive snuff box tenderness). Negative for: Deformity, Swelling (No obvious ecchymosis ) Neurological/Psych: Positive for: Awake, Alert, Normal Tone - ECG O2 Sat by Pulse Oximetry: 98 (RA) Pulse Ox Interpretation: Normal - Progress ED Course And Treament: xry of lef thumb: neg for fx xry of left wrist: neg for fx Placed in thumb spica splint toradol 30 mg IM x 1 dose Medical Decision Making Medical Decision Making: Time: 13:11 Initial Impression: Left thumb pain Initial Plan: --Toradol 30mg IM --Hand left thumb [RAD] --Wrist, left 3 views [RAD] --Reevaluation Scribe Attestation: Documented by Florencio Maguire, acting as a scribe for Boni Wang PA-C. Provider Scribe Attestation: All medical record entries made by the Scribe were at my direction and personally dictated by me. I have reviewed the chart and agree that the record accurately reflects my personal performance of the history, physical exam, medical decision making, and the department course for this patient. I have also personally directed, reviewed, and agree with the discharge instructions and disposition. Disposition - Clinical Impression Clinical Impression: Thumb injury - Patient ED Disposition Is Patient to be Admitted: No - Disposition Referrals: Ari Camacho MD [Staff Provider] - Disposition Time: 13:34 Condition: FAIR Instructions: Sprained Thumb (DC) Forms: [facility] ED School/Work Excuse
--- NOTE | 2018-04-30 14:55 | RAD ---
Date of service: 04/30/2018 PROCEDURE: Left Thumb radiographs. HISTORY: thumb injury COMPARISON: None. TECHNIQUE: AP radiograph of the left hand, as well as spot oblique and lateral images of thumb were obtained. FINDINGS: LEFT THUMB: Normal left thumb, without fracture or focal lesion. Remainder of the left hand (as seen on the AP view) grossly unremarkable. JOINTS: Normal. SOFT TISSUES: Normal. OTHER FINDINGS: None. IMPRESSION: No evidence of acute displaced fracture nor dislocation.
--- NOTE | 2018-04-30 15:08 | RAD ---
Date of service: 04/30/2018 PROCEDURE: Left Wrist Radiographs. HISTORY: Wrist injury COMPARISON: None. FINDINGS: BONES: Normal. No fracture. JOINTS: Normal. No dislocation. SOFT TISSUES: Normal. OTHER FINDINGS: None. IMPRESSION: No definitive radiographic evidence of acute displaced fracture nor dislocation. If symptoms persist or occult fracture suspected clinically consider repeat radiographs in 7-10 days as most fractures should become radiographically evident in this timeframe.
== END 2018-04-30 13:49 | disposition home or self-care (01) ==
LOC: H.ER 12:44
DX: S69.92XA Unspecified injury of left wrist, hand and finger(s), initial encounter (principal); W51.XXXA Accidental striking against or bumped into by another person, initial encounter; Y93.83 Activity, rough housing and horseplay; K50.90 Crohn's disease, unspecified, without complications; G89.29 Other chronic pain; J44.9 Chronic obstructive pulmonary disease, unspecified; Z79.01 Long term (current) use of anticoagulants; Z86.711 Personal history of pulmonary embolism; Z88.0 Allergy status to penicillin
CPT/HCPCS: 73110; 73140; 81025; 96372; 99285; J1885